=== PATIENT | male | born 2000 | race American Indian/Alaskan Native ===

== ENCOUNTER 2020-12-17 17:07 | Inpatient (IN) | payer MEDICAID ==
--- NOTE | 2020-12-17 18:28 | Event Note ---
ED Screening Note Date of service: 12/17/20 Time: 18:27 ED Screening Note: 20-year-old male patient with history of pulmonary hypertension, acute hypercarbic respiratory failure requiring intubation, COPD, congestive heart failure, polycythemia vera, and obstructive sleep apnea [facility] with complaints of bilateral lower extremity swelling and shortness of breath gradually worsening for approximately 1 week. Patient states that he has been out of his medications for several months. SpO2 81% in triage --> ordered supplemental O2 HR 110 in triage --> ordered EKG, lactic acid, and cultures per sepsis protocol CTA of chest for evaluation of PE ordered due to patient's history of polycythemia + tachycardia + hypoxia + dyspnea; not an appropriate candidate for D-dimer risk stratification due to high pretest probability Blood gas obtained due to chronic respiratory issues and history of hypercarbic respiratory failure less than 1 year ago. General: Awake, appropriately interactive, no acute distress. Neck: Supple. Full range of motion intact. Cardiovascular: Tachycardic. Normal peripheral perfusion. Nonpitting lower extremity edema noted bilaterally. Pulmonary: Clear to auscultation. No respiratory distress. Patient is speaking normally without use of accessory muscles. Skin: No apparent rashes or lesions. Neurological: No facial asymmetry. Speech is clear. Follows commands. Patient is alert and oriented. Musculoskeletal: Moves all four extremities spontaneously with normal range of motion. Psych: Cooperative. Appropriate mood and affect. I have greeted and performed a focused rapid initial assessment of this patient. A comprehensive ED assessment and evaluation of the patient, analysis of all test results, and completion of the medical decision-making process will be conducted by additional ED providers. This initial assessment/diagnostic orders/clinical plan/treatment(s) is/are subject to change based on patients health status, clinical progression and re-assessment. Further treatment and workup at subsequent clinical provider's discretion. Patient/guardian urged not to elope from the ED as their condition may be serious if not clinically assessed and managed.
[2020-12-17 19:17] LABS: Mean Corpuscular HGB Conc 33 % (32-34); Mean Corpuscular Volume 93 fl (84-94); Red Blood Count 6.76 M/mm3 (3.65-5.03); Red Cell Distribution Width 15.2 % (13.2-15.2)
[2020-12-17] MEDS ORDERED: ACETAMINOPHEN 325 MG TAB PO ONE (19:17)
--- NOTE | 2020-12-17 19:17 | Emergency Department Report ---
ED General Adult HPI - General Chief complaint: Dyspnea/Respdistress Stated complaint: BACK PAIN/FEET SWOLLEN PUI?: Yes Time Seen by Provider: 12/17/20 18:44 Source: patient, RN notes reviewed, old records reviewed Mode of arrival: Ambulatory Limitations: No Limitations - History of Present Illness Initial comments: The patient was evaluated in the emergency department for symptoms described in the history of present illness. He/she was evaluated in the context of the global COVID-19 pandemic, which necessitated consideration that the patient might be at risk for infection with the virus that causes COVID-19. Institution al protocols and algorithms that pertain to the evaluation of patients at risk for COVID-19 are in a state of rapid change based on information released by regulatory bodies including the CDC and federal and state organizations. These policies and algorithms were followed during the patient's care in the emergency department. Please note that these policies, procedures and recommendations changed on a rapid basis. During the history and physical examination, I had on complete personal protect nataliia equipment. Patient is a 21-year-old gentleman, with a past history of body mass index 36.8, history of hypoxic and hypercapnic respiratory failure requiring intubation, flash pulmonary edema, obstructive sleep apnea, noncompliant with CPAP, polycythemia. The patient presents to the ER today with a primary complaint of nontraumatic paralumbar back pain. This has been present for a few weeks. The pain does not radiate anywhere. It increases with palpation. It decreases with rest. There is no bladder or bowel retention or incontinence, no saddle anesthesia, no focal extremity weakness/numbness. On review of systems, patient endorses chronic headaches, sleepiness, fatigue, shortness of breath, and lower extremity swelling. He unfortunately does not have a CPAP as he reports that it was stolen. He denies loss of taste and smell. He denies travel, surgery, immobilization, oral contraceptive use. He denies Covid exposure. -: Gradual, days(s), week(s) Location: back, left, right, lower extremity Severity scale (0 -10): 9 Quality: aching Consistency: intermittent Improves with: rest Worsens with: movement - Related Data Previous Rx's Medication Instructions Recorded Last Taken Type Albuterol Mdi (or & Nicu Only) 1 puff IH QID PRN #8.5 gram 10/17/19 Unknown Rx [ProAir HFA Inhaler] Furosemide [Lasix] 20 mg PO QDAY #14 tablet 10/17/19 Unknown Rx Allergies Allergy/AdvReac Type Severity Reaction Status Date / Time No Known Allergies Allergy Unverified 10/09/19 09:58 ED Review of Systems ROS: Stated complaint: BACK PAIN/FEET SWOLLEN Other details as noted in HPI Constitutional: malaise, weakness, other (Denies loss of taste and smell). denies: fever Eyes: denies: eye discharge ENT: congestion Respiratory: cough, orthopnea, shortness of breath, SOB with exertion, SOB at rest. denies: wheezing Cardiovascular: dyspnea on exertion, orthopnea, edema, paroxysmal nocturnal dyspnea. denies: chest pain Gastrointestinal: denies: nausea, vomiting, hematemesis, melena, hematochezia Genitourinary: denies: dysuria Musculoskeletal: back pain, arthralgia, myalgia Neurological: headache, weakness Hematological/Lymphatic: denies: easy bleeding ED Past Medical Hx - Past Medical History Hx Asthma: Yes Additional medical history: Pulmonary hypertension/ SLLEP APNEA - Surgical History Past Surgical History?: No - Social History Smoking Status: Current Every Day Smoker - Medications Home Medications: Home Medications Medication Instructions Recorded Confirmed Last Taken Type Albuterol Mdi (or & Nicu Only) 1 puff IH QID PRN #8.5 gram 10/17/19 Unknown Rx [ProAir HFA Inhaler] Furosemide [Lasix] 20 mg PO QDAY #14 tablet 10/17/19 Unknown Rx ED Physical Exam - General Limitations: No Limitations General appearance: alert, anxious, obese - Head Head exam: Present: atraumatic, normocephalic - Eye Eye exam: Present: normal appearance, EOMI. Absent: nystagmus - ENT ENT exam: Present: normal exam, normal orophraynx, mucous membranes moist, normal external ear exam - Neck Neck exam: Present: normal inspection, full ROM. Absent: tenderness, meningismus - Respiratory Respiratory exam: Present: decreased breath sounds. Absent: respiratory distress, wheezes, rales, rhonchi, stridor - Cardiovascular Cardiovascular Exam: Present: normal rhythm, tachycardia, JVD. Absent: systolic murmur, diastolic murmur, rubs, gallop - GI/Abdominal GI/Abdominal exam: Present: soft. Absent: distended, tenderness, guarding, rebo und, rigid, pulsatile mass - Rectal Rectal exam: Present: deferred - Extremities Exam Extremities exam: Present: normal inspection, full ROM, pedal edema (3+ edema in the bilateral lower extremities), other (2+ pulses noted in the bilateral upper and lower extremities. There is no palpable cord. negative Homans sign. Muscular compartments are soft. The pelvis is stable.). Absent: calf tenderness - Back Exam Back exam: Present: normal inspection, paraspinal tenderness. Absent: tenderness, CVA tenderness (R), CVA tenderness (L), vertebral tenderness - Neurological Exam Neurological exam: Present: alert, normal gait, other (No facial droop. Tongue midline. Extraocular movements intact bilaterally. Facial sensation intact to light touch in V1, V2, V3 distribution bilaterally. 5 and a 5 strength in 4 extremities. Sensation intact to light touch in 4 extremities.). Absent: motor sensory deficit (Downgoing plantar reflexes bilaterally) - Psychiatric Psychiatric exam: Present: anxious - Skin Skin exam: Present: warm, dry, intact, normal color. Absent: rash ED Course Vital Signs 12/17/20 12/17/20 12/17/20 18:22 19:18 19:28 Temperature 99 F Pulse Rate 110 H 92 H Respiratory 22 Rate Blood Pressure Blood Pressure 129/76 [Right] O2 Sat by Pulse 81 L 85 Oximetry 12/17/20 12/17/20 12/17/20 19:30 19:46 20:00 Temperature Pulse Rate 98 H 102 H 114 H Respiratory 12 13 18 Rate Blood Pressure 121/79 121/79 121/79 Blood Pressure [Right] O2 Sat by Pulse 98 89 83 L Oximetry 12/17/20 12/17/20 12/17/20 20:08 20:16 20:30 Temperature Pulse Rate 103 H 106 H 95 H Respiratory 17 15 16 Rate Blood Pressure 139/88 139/88 139/88 Blood Pressure [Right] O2 Sat by Pulse 95 97 96 Oximetry 12/17/20 12/17/20 12/17/20 20:46 21:00 21:16 Temperature Pulse Rate 102 H 103 H 96 H Respiratory 16 15 17 Rate Blood Pressure 139/88 139/88 146/87 Blood Pressure [Right] O2 Sat by Pulse 94 93 93 Oximetry 12/17/20 12/17/20 12/17/20 21:30 21:46 22:00 Temperature Pulse Rate 103 H 104 H 102 H Respiratory 14 15 15 Rate Blood Pressure 146/87 146/87 146/87 Blood Pressure [Right] O2 Sat by Pulse 93 92 93 Oximetry 12/17/20 12/17/20 12/17/20 22:16 22:30 22:46 Temperature Pulse Rate 100 H 102 H Respiratory 14 16 Rate Blood Pressure 138/81 138/81 138/81 Blood Pressure [Right] O2 Sat by Pulse 93 94 96 Oximetry 12/17/20 12/17/20 12/17/20 23:00 23:16 23:30 Temperature Pulse Rate 99 H 102 H 104 H Respiratory 15 15 16 Rate Blood Pressure 138/81 148/98 148/98 Blood Pressure [Right] O2 Sat by Pulse 94 95 96 Oximetry 12/17/20 12/18/20 12/18/20 23:46 00:00 00:16 Temperature Pulse Rate 97 H 101 H 93 H Respiratory 17 14 16 Rate Blood Pressure 148/98 148/98 135/92 Blood Pressure [Right] O2 Sat by Pulse 94 95 96 Oximetry 12/18/20 12/18/20 12/18/20 00:30 00:46 01:00 Temperature Pulse Rate 97 H 96 H 101 H Respiratory 14 17 17 Rate Blood Pressure 135/92 135/92 135/92 Blood Pressure [Right] O2 Sat by Pulse 95 94 95 Oximetry - Reevaluation(s) Reevaluation #1: 12/17/20 20:28 Differential diagnosis, including but not limited to: Obstructive sleep apnea, pulmonary hypertension, obesity hypoventilation syndrome, pneumonia, congestive heart failure, COVID-19, obesity, mechanical back pain Assessment and plan: 21-year-old gentleman with tachycardia, hypoxia, mechanical back pain, lower extremity swelling, likely experiencing natural history and complications of morbid obesity, and noncompliance with CPAP, manifest by acute hypoxic respiratory failure, tachycardia, congestive heart failure, and lower extremity edema. This patient meets criteria for admission and hospitalization. We will place him on isolation precautions, start BiPAP, obtain ABG, give steroids empirically, and high-dose Lasix. Do not suspect pulmonary embolism based off of the history Biomarkers were sent to risk stratify for Covid symptomatology. Patient is amenable to admission and hospitalization. He required 5 L of supplemental oxygen to improve his O2 saturation. I am awaiting arterial blood gas at this time. Will discuss with hospital medicine. His EKG, tachycardia and hypoxia are reviewed and appreciated, but the patient denies DVT and pulmonary embolism risk factors. It is most likely that his physical exam findings EKG findings, and vital signs are likely secondary to decompensated obstructive sleep apnea, pulmonary hypertension, right-sided heart failure, and noncompliance with CPAP. Polycythemia is likely secondary to compensatory mechanisms 12/17/20 20:30 12/17/20 20:31 Reevaluation #2: 12/17/20 20:32 Patient walks with a steady gait. He has no bladder or bowel retention or incontinence, and no saddle anesthesia. Back pain is likely mechanical, likely secondary to obesity, his examination and history at this time do not suggest epidural compression syndrome. Neurologic exam benign within normal limits at this time. 12/17/20 21:18 Patient breathing comfortably on BiPAP. Arterial blood gas demonstrates respiratory acidosis, hypercarbia, and hypoxemic respiratory failure. Patient awake and protecting airway at this time. He will be admitted to our stepdown unit. Hospital physician, Dr. Yanez to admit to [facility] ED Medical Decision Making - Lab Data Result diagrams: 12/17/20 18:44 12/17/20 19:21 Vital Signs 12/17/20 12/17/20 12/17/20 18:22 19:28 20:08 Temperature 99 F Pulse Rate 110 H 92 H 103 H Respiratory 22 17 Rate Blood Pressure 139/88 Blood Pressure 129/76 [Right] O2 Sat by Pulse 81 L 95 Oximetry Lab Results 12/17/20 12/17/20 12/17/20 Range/Units 18:44 18:44 18:44 WBC 6.8 (4.5-11.0) K/mm3 RBC 6.76 H (3.65-5.03) M/mm3 Hgb 20.4 H* (11.8-15.2) gm/dl Hct 62.7 H* (35.5-45.6) % MCV 93 (84-94) fl MCH 30 (28-32) pg MCHC 33 (32-34) % RDW 15.2 (13.2-15.2) % Plt Count 140 (140-440) K/mm3 [place] % (Auto) Clinical Assessment Manager Add Manual Diff Complete Total Counted 100 Seg Neuts % (Manual) 58.0 (40.0-70.0) % Lymphocytes % (Manual) 28.0 (13.4-35.0) % Monocytes % (Manual) 12.0 H (0.0-7.3) % Eosinophils % (Manual) 2.0 (0.0-4.3) % Promyelocytes % 0 % Nucleated RBC % Not Reportable Seg Neutrophils # Man 3.9 (1.8-7.7) K/mm3 Band Neutrophils # 0.0 K/mm3 Lymphocytes # (Manual) 1.9 (1.2-5.4) K/mm3 Abs React Lymphs (Man) 0.0 K/mm3 Monocytes # (Manual) 0.8 (0.0-0.8) K/mm3 Eosinophils # (Manual) 0.1 (0.0-0.4) K/mm3 Basophils # (Manual) 0.0 (0.0-0.1) K/mm3 Metamyelocytes # 0.0 K/mm3 Myelocytes # 0.0 K/mm3 Promyelocytes # 0.0 K/mm3 Blast Cells # 0.0 K/mm3 WBC Morphology Not Reportable Hypersegmented Neuts Not Reportable Hyposegmented Neuts Not Reportable Hypogranular Neuts Not Reportable Smudge Cells Not Reportable Toxic Granulation Not Reportable Toxic Vacuolation Not Reportable Dohle Bodies Not Reportable Pelger-Huet Anomaly Not Reportable Jono Rods Not Reportable Platelet Estimate Consistent w auto Clumped Platelets Not Reportable Plt Clumps, EDTA Not Reportable Large Platelets Not Reportable Giant Platelets Not Reportable Platelet Satelliting Not Reportable Plt Morphology Comment Not Reportable RBC Morphology Normal Dimorphic RBCs Not Reportable Polychromasia Not Reportable Hypochromasia Not Reportable Poikilocytosis Not Reportable Anisocytosis Not Reportable Microcytosis Not Reportable Macrocytosis Not Reportable Spherocytes Not Reportable Pappenheimer Bodies Not Reportable Sickle Cells Not Reportable Target Cells Not Reportable Tear Drop Cells Not Reportable Ovalocytes Not Reportable Helmet Cells Not Reportable Mejia-Hopkins Bodies Not Reportable Douglas Rings Not Reportable Zullinger Cells Not Reportable Bite Cells Not Reportable Crenated Cell Not Reportable Elliptocytes Not Reportable Acanthocytes (Spur) Not Reportable Rouleaux Not Reportable Hemoglobin C Crystals Not Reportable Schistocytes Not Reportable Malaria parasites Not Reportable Rashard Bodies Not Reportable Hem Pathologist Commnt No PT (12.2-14.9) Sec. INR (0.87-1.13) APTT (24.2-36.6) Sec. D-Dimer (0-234) ng/mlDDU Sodium 134 L (137-145) mmol/L Potassium 4.4 (3.6-5.0) mmol/L Chloride 97.0 L (98-107) mmol/L Carbon Dioxide 26 (22-30) mmol/L Anion Gap 15 mmol/L BUN 10 (9-20) mg/dL Creatinine 0.8 (0.8-1.3) mg/dL Estimated GFR > 60 ml/min BUN/Creatinine Ratio 13 % Glucose 105 H (75-100) mg/dL Lactic Acid 1.10 (0.7-2.0) mmol/L Calcium 9.0 (8.4-10.2) mg/dL Magnesium 1.90 (1.7-2.3) mg/dL Ferritin (30.0-300.0) ng/mL Total Bilirubin 0.40 (0.1-1.2) mg/dL AST 27 (5-40) units/L ALT 21 (7-56) units/L Alkaline Phosphatase 66 (35-129) units/L Lactate Dehydrogenase (91-180) units/L Total Creatine Kinase (55-170) units/L Troponin T < 0.010 (0.00-0.029) ng/mL C-Reactive Protein (0.00-1.30) mg/dL NT-Pro-B Natriuret Pep 1354 H (0-450) pg/mL Total Protein 6.6 (6.3-8.2) g/dL Albumin 3.6 L (3.9-5) g/dL Albumin/Globulin Ratio 1.2 % 12/17/20 12/17/20 12/17/20 Range/Units 18:44 19:21 19:21 WBC (4.5-11.0) K/mm3 RBC (3.65-5.03) M/mm3 Hgb (11.8-15.2) gm/dl Hct (35.5-45.6) % MCV (84-94) fl MCH (28-32) pg MCHC (32-34) % RDW (13.2-15.2) % Plt Count (140-440) K/mm3 L[place]kin % (Auto) Add Manual Diff Total Counted Seg Neuts % (Manual) (40.0-70.0) % Lymphocytes % (Manual) (13.4-35.0) % Monocytes % (Manual) (0.0-7.3) % Eosinophils % (Manual) (0.0-4.3) % Promyelocytes % % Nucleated RBC % Seg Neutrophils # Man (1.8-7.7) K/mm3 Band Neutrophils # K/mm3 Lymphocytes # (Manual) (1.2-5.4) K/mm3 Abs React Lymphs (Man) K/mm3 Monocytes # (Manual) (0.0-0.8) K/mm3 Eosinophils # (Manual) (0.0-0.4) K/mm3 Basophils # (Manual) (0.0-0.1) K/mm3 Metamyelocytes # K/mm3 Myelocytes # K/mm3 Promyelocytes # K/mm3 Blast Cells # K/mm3 WBC Morphology Hypersegmented Neuts Hyposegmented Neuts Hypogranular Neuts Smudge Cells Toxic Granulation Toxic Vacuolation Dohle Bodies Pelger-Huet Anomaly Jono Rods Platelet Estimate Clumped Platelets Plt Clumps, EDTA Large Platelets Giant Platelets Platelet Satelliting Plt Morphology Comment RBC Morphology Dimorphic RBCs Polychromasia Hypochromasia Poikilocytosis Anisocytosis Microcytosis Macrocytosis Spherocytes Pappenheimer Bodies Sickle Cells Target Cells Tear Drop Cells Ovalocytes Helmet Cells Mejia-Hopkins Bodies Douglas Rings Zullinger Cells Bite Cells Crenated Cell Elliptocytes Acanthocytes (Spur) Rouleaux Hemoglobin C Crystals Schistocytes Malaria parasites Rashard Bodies Hem Pathologist Commnt PT 13.7 (12.2-14.9) Sec. INR 1.07 (0.87-1.13) APTT 26.8 (24.2-36.6) Sec. D-Dimer 260.5 H (0-234) ng/mlDDU Sodium (137-145) mmol/L Potassium (3.6-5.0) mmol/L Chloride (98-107) mmol/L Carbon Dioxide (22-30) mmol/L Anion Gap mmol/L BUN (9-20) mg/dL Creatinine (0.8-1.3) mg/dL Estimated GFR ml/min BUN/Creatinine Ratio % Glucose 98 (75-100) mg/dL Lactic Acid (0.7-2.0) mmol/L Calcium (8.4-10.2) mg/dL Magnesium (1.7-2.3) mg/dL Ferritin (30.0-300.0) ng/mL Total Bilirubin (0.1-1.2) mg/dL AST (5-40) units/L ALT (7-56) units/L Alkaline Phosphatase (35-129) units/L Lactate Dehydrogenase 708 H (91-180) units/L Total Creatine Kinase 781 H (55-170) units/L Troponin T (0.00-0.029) ng/mL C-Reactive Protein 0.40 (0.00-1.30) mg/dL NT-Pro-B Natriuret Pep (0-450) pg/mL Total Protein (6.3-8.2) g/dL Albumin (3.9-5) g/dL Albumin/Globulin Ratio % 12/17/20 Range/Units 19:21 WBC (4.5-11.0) K/mm3 RBC (3.65-5.03) M/mm3 Hgb (11.8-15.2) gm/dl Hct (35.5-45.6) % MCV (84-94) fl MCH (28-32) pg MCHC (32-34) % RDW (13.2-15.2) % Plt Count (140-440) K/mm3 [place] % (Auto) Add Manual Diff Total Counted Seg Neuts % (Manual) (40.0-70.0) % Lymphocytes % (Manual) (13.4-35.0) % Monocytes % (Manual) (0.0-7.3) % Eosinophils % (Manual) (0.0-4.3) % Promyelocytes % % Nucleated RBC % Seg Neutrophils # Man (1.8-7.7) K/mm3 Band Neutrophils # K/mm3 Lymphocytes # (Manual) (1.2-5.4) K/mm3 Abs React Lymphs (Man) K/mm3 Monocytes # (Manual) (0.0-0.8) K/mm3 Eosinophils # (Manual) (0.0-0.4) K/mm3 Basophils # (Manual) (0.0-0.1) K/mm3 Metamyelocytes # K/mm3 Myelocytes # K/mm3 Promyelocytes # K/mm3 Blast Cells # K/mm3 WBC Morphology Hypersegmented Neuts Hyposegmented Neuts Hypogranular Neuts Smudge Cells Toxic Granulation Toxic Vacuolation Dohle Bodies Pelger-Huet Anomaly Jono Rods Platelet Estimate Clumped Platelets Plt Clumps, EDTA Large Platelets Giant Platelets Platelet Satelliting Plt Morphology Comment RBC Morphology Dimorphic RBCs Polychromasia Hypochromasia Poikilocytosis Anisocytosis Microcytosis Macrocytosis Spherocytes Pappenheimer Bodies Sickle Cells Target Cells Tear Drop Cells Ovalocytes Helmet Cells Mejia-Hopkins Bodies Douglas Rings Zullinger Cells Bite Cells Crenated Cell Elliptocytes Acanthocytes (Spur) Rouleaux Hemoglobin C Crystals Schistocytes Malaria parasites Rashard Bodies Hem Pathologist Commnt PT (12.2-14.9) Sec. INR (0.87-1.13) APTT (24.2-36.6) Sec. D-Dimer (0-234) ng/mlDDU Sodium (137-145) mmol/L Potassium (3.6-5.0) mmol/L Chloride (98-107) mmol/L Carbon Dioxide (22-30) mmol/L Anion Gap mmol/L BUN (9-20) mg/dL Creatinine (0.8-1.3) mg/dL Estimated GFR ml/min BUN/Creatinine Ratio % Glucose (75-100) mg/dL Lactic Acid (0.7-2.0) mmol/L Calcium (8.4-10.2) mg/dL Magnesium (1.7-2.3) mg/dL Ferritin 202.3 (30.0-300.0) ng/mL Total Bilirubin (0.1-1.2) mg/dL AST (5-40) units/L ALT (7-56) units/L Alkaline Phosphatase (35-129) units/L Lactate Dehydrogenase (91-180) units/L Total Creatine Kinase (55-170) units/L Troponin T (0.00-0.029) ng/mL C-Reactive Protein (0.00-1.30) mg/dL NT-Pro-B Natriuret Pep (0-450) pg/mL Total Protein (6.3-8.2) g/dL Albumin (3.9-5) g/dL Albumin/Globulin Ratio % - EKG Data 12/17/20 20:28 EKG today's interpreted at 18: 34 Sinus rhythm, tachycardia. Rightward axis deviation. T wave inversions V2. QTc 439 ms. Abnormal EKG. Not a STEMI. No prior available for comparison. - Radiology Data Radiology results: pending, report reviewed, image reviewed [facility] [address] [place] [address] XRay Report Signed Patient: TONNY VALENTIN JR MR#: [id number] : 2000 Acct:[id number] Age/Sex: 20 / M ADM Date: 12/17/20 Loc: ED Attending Dr: Ordering Physician: SARA AMOS Date of Service: Procedure(s): XR chest routine 2V Accession Number(s): [id number] cc: SARA AMOS Fluoro Time In Minutes: CHEST 2 VIEWS INDICATION / CLINICAL INFORMATION: SOB. COMPARISON: None available. FINDINGS: SUPPORT DEVICES: None. HEART / MEDIASTINUM: Heart is enlarged LUNGS / PLEURA: Mild increased pulmonary vascularity No pneumothorax. ADDITIONAL FINDINGS: No significant additional findings. IMPRESSION: Cardiomegaly with mild increased pulmonary vascularity Signer Name: Yovanny Butcher MD Signed: 12/17/2020 7:13 PM Workstation Name: [id number] Transcribed By: CW Dictated By: SAMM BUTCHER MD Electronically Authenticated By: SAMM BUTCHER MD Signed Date/Time: 12/17/201912 DD/ 12 Critical Care Time: Yes Critical care time in (mins) excluding proc time.: 35 Critical care attestation.: If time is entered above; I have spent that time in minutes in the direct care of this critically ill patient, excluding procedure time. ED Disposition Clinical Impression: Acute respiratory failure with hypoxia, Suspected 2019- infection, Morbid obesity, Obstructive sleep apnea, Noncompliance, Lower back pain, Pulmonary hypertension, Polycythemia, Hypercarbia, Respiratory acidosis Disposition: 09 OP ADMIT IP TO THIS HOSP Is pt being admited?: Yes Does the pt Need Aspirin: No Condition: Serious
[2020-12-17 19:21] LABS: Hematocrit 62.7 % (35.5-45.6); Hemoglobin 20.4 gm/dl (11.8-15.2); Platelet Count 140 K/mm3 (140-440)
[2020-12-17 19:28] LABS: INR 1.07 (0.87-1.13)
[2020-12-17 19:29] LABS: Partial Thromboplastin Time 26.8 Sec. (24.2-36.6)
[2020-12-17 19:35] LABS: Alanine Aminotransferase 21 units/L (7-56); Albumin 3.6 g/dL (3.9-5); BUN/Creatinine Ratio 13; Blood Urea Nitrogen 10 mg/dL (9-20); Hemolysis Index 46
[2020-12-17 19:57] LABS: Total Cells Counted 100
[2020-12-17 19:59] LABS: Platelet Estimate Consistent w Auto; RBC Morphology Normal
[2020-12-17 20:09] LABS: C-Reactive Protein 0.4 mg/dL (0.00-1.30)
[2020-12-17] MEDS ORDERED: dexAMETHasone 4 MG/ML VIAL IV ONE (20:21)
[2020-12-17] MEDS ORDERED: FUROSEMIDE 40 MG/4 ML INJ IV ONE (20:21)
[2020-12-17 20:48] LABS: ABG Base Excess 0.7 mmol/L (-2.0-3.0); ABG Methemoglobin 0.5 % (0.0-1.5); ABG Oxygen Saturation 88.6 % (95.0-99.0); ABG PCO2 78.3 mm Hg; ABG PH 7.229 pH Units (7.350-7.450); ABG PO2 62.9 mm Hg (80.0-90.0)
[2020-12-17] MEDS ORDERED: ALBUTEROL 8.5 GM MDI INHALATION IH PRN (21:50)
[2020-12-17] MEDS ORDERED: hydrALAZINE 20 MG/1 ML INJ IV PRN ×2 (21:52→22:04)
[2020-12-17] MEDS ORDERED: ALBUTEROL 2.5 MG/3 ML NEBU IH PRN (21:55)
--- NOTE | 2020-12-17 21:57 | History and Physical Report ---
History of Present Illness Date of examination: 12/17/20 Date of admission: 12/17/20 Chief complaint: Dyspnea Respiratory distress History of present illness: 21-year-old gentleman, with past medical history of hypoxic and hypercapnic respiratory failure requiring intubation, flash pulmonary edema, obstructive sleep apnea, noncompliant with CPAP, polycythemia and obesity was brought to the emergency room because of shortness of breath and nontraumatic paralumbar back pain. This has been present for a few weeks. The pain does not radiate anywhere. It increases with palpation. It decreases with rest. There is no bladder or bowel retention or incontinence, no saddle anesthesia, no focal extremity weakness/numbness. Patient also complaining of chronic headaches, sleepiness, fatigue, shortness of breath, and lower extremity swelling. In the ER patient is found to have acute hypoxic respiratory failure. ABG showed pH is 7.229 PCO2 78.3 PO2 62.9 bicarb 32.0 also patient has mild CHF Past History Past Medical History: COPD, other (Hypoxic and hypercapnic respiratory failure obesity pulmonary edema) Medications and Allergies Allergies Allergy/AdvReac Type Severity Reaction Status Date / Time No Known Allergies Allergy Unverified 10/09/19 09:58 Home Medications Medication Instructions Recorded Confirmed Last Taken Type Albuterol Mdi (or & Nicu Only) 1 puff IH QID PRN #8.5 gram 10/17/19 Unknown Rx [ProAir HFA Inhaler] Furosemide [Lasix] 20 mg PO QDAY #14 tablet 10/17/19 Unknown Rx Review of Systems Constitutional: lethargy Cardiovascular: orthopnea Respiratory: shortness of breath, dyspnea on exertion, congestion, sleep apnea Exam - Constitutional Vitals: Temp Pulse Resp BP Pulse Ox 99 F 103 H 17 139/88 95 12/17/20 18:22 12/17/20 20:08 12/17/20 20:08 12/17/20 20:08 12/17/20 20:08 General appearance: Present: severe distress, well-nourished, obese - EENT Eyes: Present: PERRL ENT: hearing intact, clear oral mucosa - Neck Neck: Present: supple, normal ROM - Respiratory Respiratory effort: labored Respiratory: bilateral: wheezing - Cardiovascular Heart Sounds: Present: S1 & S2. Absent: rub, click - Extremities Extremities: pulses symmetrical, No edema Peripheral Pulses: within normal limits - Abdominal General gastrointestinal: Present: soft, non-tender, non-distended, normal bowel sounds Male genitourinary: Present: normal - Integumentary Integumentary: Present: clear, warm, dry - Musculoskeletal Musculoskeletal: gait normal, strength equal bilaterally - Psychiatric Psychiatric: appropriate mood/affect, intact judgment & insight - Neurologic Neurologic: CNII-XII intact, moves all extremities HEART Score - HEART Score Troponin: Troponin T < 0.010 ng/mL (0.00-0.029) 12/17/20 18:44 Results - Labs CBC & Chem 7: 12/17/20 18:44 12/17/20 19:21 Labs: Laboratory Last Values WBC 6.8 K/mm3 (4.5-11.0) 12/17/20 18:44 RBC 6.76 M/mm3 (3.65-5.03) H 12/17/20 18:44 Hgb 20.4 gm/dl (11.8-15.2) H* 12/17/20 18:44 Hct 62.7 % (35.5-45.6) H* 12/17/20 18:44 MCV 93 fl (84-94) 12/17/20 18:44 MCH 30 pg (28-32) 12/17/20 18:44 MCHC 33 % (32-34) 12/17/20 18:44 RDW 15.2 % (13.2-15.2) 12/17/20 18:44 Plt Count 140 K/mm3 (140-440) 12/17/20 18:44 [place] % (Auto) Agriculture Instructor 12/17/20 18:44 Add Manual Diff Complete 12/17/20 18:44 Total Counted 100 12/17/20 18:44 Seg Neuts % (Manual) 58.0 % (40.0-70.0) 12/17/20 18:44 Lymphocytes % (Manual) 28.0 % (13.4-35.0) 12/17/20 18:44 Monocytes % (Manual) 12.0 % (0.0-7.3) H 12/17/20 18:44 Eosinophils % (Manual) 2.0 % (0.0-4.3) 12/17/20 18:44 Promyelocytes % 0 % 12/17/20 18:44 Nucleated RBC % Not Reportable 12/17/20 18:44 Seg Neutrophils # Man 3.9 K/mm3 (1.8-7.7) 12/17/20 18:44 Band Neutrophils # 0.0 K/mm3 12/17/20 18:44 Lymphocytes # (Manual) 1.9 K/mm3 (1.2-5.4) 12/17/20 18:44 Abs React Lymphs (Man) 0.0 K/mm3 12/17/20 18:44 Monocytes # (Manual) 0.8 K/mm3 (0.0-0.8) 12/17/20 18:44 Eosinophils # (Manual) 0.1 K/mm3 (0.0-0.4) 12/17/20 18:44 Basophils # (Manual) 0.0 K/mm3 (0.0-0.1) 12/17/20 18:44 Metamyelocytes # 0.0 K/mm3 12/17/20 18:44 Myelocytes # 0.0 K/mm3 12/17/20 18:44 Promyelocytes # 0.0 K/mm3 12/17/20 18:44 Blast Cells # 0.0 K/mm3 12/17/20 18:44 WBC Morphology Not Reportable 12/17/20 18:44 Hypersegmented Neuts Not Reportable 12/17/20 18:44 Hyposegmented Neuts Not Reportable 12/17/20 18:44 Hypogranular Neuts Not Reportable 12/17/20 18:44 Smudge Cells Not Reportable 12/17/20 18:44 Toxic Granulation Not Reportable 12/17/20 18:44 Toxic Vacuolation Not Reportable 12/17/20 18:44 Dohle Bodies Not Reportable 12/17/20 18:44 Pelger-Huet Anomaly Not Reportable 12/17/20 18:44 Jono Rods Not Reportable 12/17/20 18:44 Platelet Estimate Consistent w auto 12/17/20 18:44 Clumped Platelets Not Reportable 12/17/20 18:44 Plt Clumps, EDTA Not Reportable 12/17/20 18:44 Large Platelets Not Reportable 12/17/20 18:44 Giant Platelets Not Reportable 12/17/20 18:44 Platelet Satelliting Not Reportable 12/17/20 18:44 Plt Morphology Comment Not Reportable 12/17/20 18:44 RBC Morphology Normal 12/17/20 18:44 Dimorphic RBCs Not Reportable 12/17/20 18:44 Polychromasia Not Reportable 12/17/20 18:44 Hypochromasia Not Reportable 12/17/20 18:44 Poikilocytosis Not Reportable 12/17/20 18:44 Anisocytosis Not Reportable 12/17/20 18:44 Microcytosis Not Reportable 12/17/20 18:44 Macrocytosis Not Reportable 12/17/20 18:44 Spherocytes Not Reportable 12/17/20 18:44 Pappenheimer Bodies Not Reportable 12/17/20 18:44 Sickle Cells Not Reportable 12/17/20 18:44 Target Cells Not Reportable 12/17/20 18:44 Tear Drop Cells Not Reportable 12/17/20 18:44 Ovalocytes Not Reportable 12/17/20 18:44 Helmet Cells Not Reportable 12/17/20 18:44 [place] Bodies Not Reportable 12/17/20 18:44 [place] Rings Not Reportable 12/17/20 18:44 [place] Cells Not Reportable 12/17/20 18:44 Bite Cells Not Reportable 12/17/20 18:44 Crenated Cell Not Reportable 12/17/20 18:44 Elliptocytes Not Reportable 12/17/20 18:44 Acanthocytes (Spur) Not Reportable 12/17/20 18:44 Rouleaux Not Reportable 12/17/20 18:44 Hemoglobin C Crystals Not Reportable 12/17/20 18:44 Schistocytes Not Reportable 12/17/20 18:44 Malaria parasites Not Reportable 12/17/20 18:44 Rashard Bodies Not Reportable 12/17/20 18:44 Hem Pathologist Commnt No 12/17/20 18:44 PT 13.7 Sec. (12.2-14.9) 12/17/20 18:44 INR 1.07 (0.87-1.13) 12/17/20 18:44 APTT 26.8 Sec. (24.2-36.6) 12/17/20 18:44 D-Dimer 260.5 ng/mlDDU (0-234) H 12/17/20 19:21 ABG pH 7.229 pH Units (7.350-7.450) L 12/17/20 20:00 ABG pCO2 78.3 mm Hg 12/17/20 20:00 ABG pO2 62.9 mm Hg (80.0-90.0) L 12/17/20 20:00 ABG HCO3 32.0 mmol/L (20.0-26.0) H 12/17/20 20:00 ABG O2 Saturation 88.6 % (95.0-99.0) L 12/17/20 20:00 ABG O2 Content 23.8 (0.0-44) 12/17/20 20:00 ABG Base Excess 0.7 mmol/L (-2.0-3.0) 12/17/20 20:00 ABG Hemoglobin 20.1 gm/dl (14.0-18.0) H 12/17/20 20:00 ABG Carboxyhemoglobin 4.0 % (0.0-5.0) 12/17/20 20:00 ABG Methemoglobin 0.5 % (0.0-1.5) 12/17/20 20:00 Oxyhemoglobin 84.6 % (95.0-99.0) L 12/17/20 20:00 FiO2 36 % 12/17/20 20:00 Sodium 134 mmol/L (137-145) L 12/17/20 18:44 Potassium 4.4 mmol/L (3.6-5.0) 12/17/20 18:44 Chloride 97.0 mmol/L (98-107) L 12/17/20 18:44 Carbon Dioxide 26 mmol/L (22-30) 12/17/20 18:44 Anion Gap 15 mmol/L 12/17/20 18:44 BUN 10 mg/dL (9-20) 12/17/20 18:44 Creatinine 0.8 mg/dL (0.8-1.3) 12/17/20 18:44 Estimated GFR > 60 ml/min 12/17/20 18:44 BUN/Creatinine Ratio 13 % 12/17/20 18:44 Glucose 98 mg/dL (75-100) 12/17/20 19:21 Lactic Acid 1.10 mmol/L (0.7-2.0) 12/17/20 18:44 Calcium 9.0 mg/dL (8.4-10.2) 12/17/20 18:44 Magnesium 1.90 mg/dL (1.7-2.3) 12/17/20 18:44 Ferritin 202.3 ng/mL (30.0-300.0) 12/17/20 19:21 Total Bilirubin 0.40 mg/dL (0.1-1.2) 12/17/20 18:44 AST 27 units/L (5-40) 12/17/20 18:44 ALT 21 units/L (7-56) 12/17/20 18:44 Alkaline Phosphatase 66 units/L (35-129) 12/17/20 18:44 Lactate Dehydrogenase 708 units/L (91-180) H 12/17/20 19:21 Total Creatine Kinase 781 units/L (55-170) H 12/17/20 19:21 Troponin T < 0.010 ng/mL (0.00-0.029) 12/17/20 18:44 C-Reactive Protein 0.40 mg/dL (0.00-1.30) 12/17/20 19:21 NT-Pro-B Natriuret Pep 1354 pg/mL (0-450) H 12/17/20 18:44 Total Protein 6.6 g/dL (6.3-8.2) 12/17/20 18:44 Albumin 3.6 g/dL (3.9-5) L 12/17/20 18:44 Albumin/Globulin Ratio 1.2 % 12/17/20 18:44 Microbiology: Microbiology 12/17/20 18:44 Peripheral/Venous Blood Culture - Preliminary Culture in Progress 12/17/20 18:54 Peripheral/Venous Blood Culture - Preliminary Culture in Progress - Imaging and Cardiology Chest x-ray: image reviewed Assessment and Plan VTE prophylaxis?: Chemical Plan of care discussed with patient/family: Yes - Patient Problems (1) Acute respiratory failure with hypoxia Current Visit: Yes Status: Acute Plan to address problem: Admit the patient to the stepdown. Put the patient on BiPAP. DuoNeb by nebulizer every 4 hours as needed. Solu-Medrol 40 mg IV every 6 hours as needed. Zithromax to 50 mg p.o. daily singular 10 mg p.o. daily. Blood cultures sputum culture. Consult pulmonary for further evaluation and treatment. Recheck CBC BMP in the morning (2) Hypercarbia Current Visit: Yes Status: Acute Plan to address problem: Put the patient on BiPAP. DuoNeb by nebulizer every 4 hours as needed. Solu- Medrol 40 mg IV every 6 hours as needed. Zithromax to 50 mg p.o. daily singular 10 mg p.o. daily. Blood cultures sputum culture. Consult pulmonary for further evaluation and treatment. Recheck CBC BMP in the morning (3) Lower back pain Current Visit: Yes Status: Acute Plan to address problem: Tylenol 650 mg p.o. every 6 hours as needed. We will try to avoid narcotic. (4) Morbid obesity Current Visit: Yes Status: Acute Plan to address problem: Patient counseled regarding weight loss. We refer to the outpatient bariatric surgery if needed (5) Obstructive sleep apnea Current Visit: Yes Status: Acute Plan to address problem: Patient encouraged to compliant with the CPAP and take them neb treatment and other medication regularly (6) Suspected 2019-nCoV infection Current Visit: Yes Status: Acute Plan to address problem: We will put the patient on Zithromax to 50 mg p.o. daily. Due to the blood cultures sputum culture. Please follow the Covid test. (7) DVT prophylaxis Current Visit: Yes Status: Acute Plan to address problem: Patient is on heparin 5000 units subcu every 8 hours for DVT prophylaxis and Protonix 40 mg p.o. daily for GI prophylaxis. Patient is a full code
[2020-12-17] MEDS: HEPARIN 5,000 UNIT/1 ML VIAL SUB-Q SCH (23:39)
[2020-12-17] MEDS: MONTELUKAST 10 MG TAB PO SCH (23:40)
[2020-12-17] MEDS: methylPREDNISolone Sod Succinate 40 MG/1 ML INJ IV SCH (23:47)
[2020-12-18] MEDS: IPRATROPIUM/ALBUTEROL SULFATE 3 ML AMPUL.NEB IH SCH ×4 (05:25→20:17)
[2020-12-18] MEDS: methylPREDNISolone Sod Succinate 40 MG/1 ML INJ IV SCH ×3 (05:56→17:38)
[2020-12-18] MEDS ORDERED: HEPARIN 5,000 UNIT/1 ML VIAL SUB-Q SCH (06:00)
[2020-12-18] MEDS ORDERED: PANTOPRAZOLE 40 MG TAB PO SCH (07:30)
[2020-12-18] MEDS: HEPARIN 5,000 UNIT/1 ML VIAL SUB-Q SCH ×3 (09:19→21:28)
[2020-12-18] MEDS: AZITHROMYCIN 250 MG TAB PO SCH (09:55)
[2020-12-18] MEDS: FUROSEMIDE 20 MG TAB PO SCH (09:55)
[2020-12-18] MEDS ORDERED: AZITHROMYCIN 250 MG TAB PO SCH (10:00)
--- NOTE | 2020-12-18 11:31 | Electrocardiograph Report ---
[facility] Test Date: 2020-12-17 Test Time: 18:34:40 Pat Name: TONNY VALENTIN Department: Room: A257 1 Gender: M Fitness/Wellness Director: CORRINE : 2000 Requested By: HAMZAH OROZCO Order Number: [id number] Reading MD: John Elkins Measurements Intervals [place] Rate: 110 P: 61 [place]: 145 QRS: 180 QRSD: 64 T: 11 QT: 324 QTc: 439 Interpretive Statements Sinus tachycardia Right axis deviation lpfb No previous ECG available for comparison Electronically Signed On 12-18-2020 11:30:49 EDT by John Elkins
--- NOTE | 2020-12-18 12:24 | Progress Note ---
Assessment and Plan Assessment and plan: (1) Acute respiratory failure with hypoxia Current Visit: Yes Status: Acute Plan to address problem: Admit the patient to the stepdown. Put the patient on BiPAP. DuoNeb by nebulizer every 4 hours as needed. Solu-Medrol 40 mg IV every 6 hours as needed. Zithromax to 50 mg p.o. daily singular 10 mg p.o. daily. Blood cultures sputum culture. Consult pulmonary for further evaluation and treatment. Recheck CBC BMP in the morning (2) Hypercarbia Current Visit: Yes Status: Acute Plan to address problem: Put the patient on BiPAP. DuoNeb by nebulizer every 4 hours as needed. Solu- Medrol 40 mg IV every 6 hours as needed. Zithromax to 50 mg p.o. daily singular 10 mg p.o. daily. Blood cultures sputum culture. Consult pulmonary for further evaluation and treatment. Recheck CBC BMP in the morning (3) Lower back pain Current Visit: Yes Status: Acute Plan to address problem: Tylenol 650 mg p.o. every 6 hours as needed. We will try to avoid narcotic. (4) Morbid obesity Current Visit: Yes Status: Acute Plan to address problem: Patient counseled regarding weight loss. We refer to the outpatient bariatric surgery if needed (5) Obstructive sleep apnea Current Visit: Yes Status: Acute Plan to address problem: Patient encouraged to compliant with the CPAP and take them neb treatment and other medication regularly (6) Suspected 2019-nCoV infection Current Visit: Yes Status: Acute Plan to address problem: We will put the patient on Zithromax to 50 mg p.o. daily. Due to the blood cultures sputum culture. Please follow the Covid test. (7) DVT prophylaxis Current Visit: Yes Status: Acute Plan to address problem: Patient is on heparin 5000 units subcu every 8 hours for DVT prophylaxis and Protonix 40 mg p.o. daily for GI prophylaxis. Patient is a full code 12/18/2020 -Patient was seen and evaluated this morning. He is on treatment for asthma/COPD exacerbation. He is on IV antibiotic, nebulizer treatment and [place] cadron. Patient is currently on BiPAP. He has polycythemia likely due to hypoxia, will repeat CBC. Patient was noncompliant with his CPAP treatment at home. Patient suspected for Covid and Covid test ordered. Will credit support counselor about weight loss once he is getting better. Obstructive sleep apnea on BiPAP for now. Pulmonary consulted. History Interval history: Patient was seen and evaluated this morning Patient is on BiPAP Does not have any complaints Hospitalist Physical - Physical exam Narrative exam: Patient is on BiPAP. The patient is morbidly obese. Vital signs as documented. Head exam is unremarkable. No scleral icterus . Neck is without jugular venous distension, thyromegaly, or carotid bruits. Lungs are clear to auscultation. Cardiac exam reveals regular rate and Rhythm. Abdominal exam reveals normal bowel sounds, nontender, no organomegaly. Extremities are nonedematous and both femoral and pedal pulses are normal. CRULLER MAKER: Alert and oriented 3. No focal weakness. - Constitutional Vitals: Temp Pulse Resp BP Pulse Ox 98.4 F 97 H 17 133/86 92 12/18/20 12:00 12/18/20 10:00 12/18/20 10:00 12/18/20 10:00 12/18/20 10:11 General appearance: Present: severe distress, well-nourished, obese HEART Score - HEART Score Troponin: Troponin T < 0.010 ng/mL (0.00-0.029) 12/17/20 21:33 Results - Labs CBC & Chem 7: 12/17/20 18:44 12/17/20 19:21 Labs: Laboratory Last Values WBC 6.8 K/mm3 (4.5-11.0) 12/17/20 18:44 RBC 6.76 M/mm3 (3.65-5.03) H 12/17/20 18:44 Hgb 20.4 gm/dl (11.8-15.2) H* 12/17/20 18:44 Hct 62.7 % (35.5-45.6) H* 12/17/20 18:44 MCV 93 fl (84-94) 12/17/20 18:44 MCH 30 pg (28-32) 12/17/20 18:44 MCHC 33 % (32-34) 12/17/20 18:44 RDW 15.2 % (13.2-15.2) 12/17/20 18:44 Plt Count 140 K/mm3 (140-440) 12/17/20 18:44 [place] % (Auto) Hood Fitter 12/17/20 18:44 Add Manual Diff Complete 12/17/20 18:44 Total Counted 100 12/17/20 18:44 Seg Neuts % (Manual) 58.0 % (40.0-70.0) 12/17/20 18:44 Lymphocytes % (Manual) 28.0 % (13.4-35.0) 12/17/20 18:44 Monocytes % (Manual) 12.0 % (0.0-7.3) H 12/17/20 18:44 Eosinophils % (Manual) 2.0 % (0.0-4.3) 12/17/20 18:44 Promyelocytes % 0 % 12/17/20 18:44 Nucleated RBC % Not Reportable 12/17/20 18:44 Seg Neutrophils # Man 3.9 K/mm3 (1.8-7.7) 12/17/20 18:44 Band Neutrophils # 0.0 K/mm3 12/17/20 18:44 Lymphocytes # (Manual) 1.9 K/mm3 (1.2-5.4) 12/17/20 18:44 Abs React Lymphs (Man) 0.0 K/mm3 12/17/20 18:44 Monocytes # (Manual) 0.8 K/mm3 (0.0-0.8) 12/17/20 18:44 Eosinophils # (Manual) 0.1 K/mm3 (0.0-0.4) 12/17/20 18:44 Basophils # (Manual) 0.0 K/mm3 (0.0-0.1) 12/17/20 18:44 Metamyelocytes # 0.0 K/mm3 12/17/20 18:44 Myelocytes # 0.0 K/mm3 12/17/20 18:44 Promyelocytes # 0.0 K/mm3 12/17/20 18:44 Blast Cells # 0.0 K/mm3 12/17/20 18:44 WBC Morphology Not Reportable 12/17/20 18:44 Hypersegmented Neuts Not Reportable 12/17/20 18:44 Hyposegmented Neuts Not Reportable 12/17/20 18:44 Hypogranular Neuts Not Reportable 12/17/20 18:44 Smudge Cells Not Reportable 12/17/20 18:44 Toxic Granulation Not Reportable 12/17/20 18:44 Toxic Vacuolation Not Reportable 12/17/20 18:44 Dohle Bodies Not Reportable 12/17/20 18:44 Pelger-Huet Anomaly Not Reportable 12/17/20 18:44 Jono Rods Not Reportable 12/17/20 18:44 Platelet Estimate Consistent w auto 12/17/20 18:44 Clumped Platelets Not Reportable 12/17/20 18:44 Plt Clumps, EDTA Not Reportable 12/17/20 18:44 Large Platelets Not Reportable 12/17/20 18:44 Giant Platelets Not Reportable 12/17/20 18:44 Platelet Satelliting Not Reportable 12/17/20 18:44 Plt Morphology Comment Not Reportable 12/17/20 18:44 RBC Morphology Normal 12/17/20 18:44 Dimorphic RBCs Not Reportable 12/17/20 18:44 Polychromasia Not Reportable 12/17/20 18:44 Hypochromasia Not Reportable 12/17/20 18:44 Poikilocytosis Not Reportable 12/17/20 18:44 Anisocytosis Not Reportable 12/17/20 18:44 Microcytosis Not Reportable 12/17/20 18:44 Macrocytosis Not Reportable 12/17/20 18:44 Spherocytes Not Reportable 12/17/20 18:44 Pappenheimer Bodies Not Reportable 12/17/20 18:44 Sickle Cells Not Reportable 12/17/20 18:44 Target Cells Not Reportable 12/17/20 18:44 Tear Drop Cells Not Reportable 12/17/20 18:44 Ovalocytes Not Reportable 12/17/20 18:44 Helmet Cells Not Reportable 12/17/20 18:44 Mejia-[place] Bodies Not Reportable 12/17/20 18:44 [place] Rings Not Reportable 12/17/20 18:44 [place] Cells Not Reportable 12/17/20 18:44 Bite Cells Not Reportable 12/17/20 18:44 Crenated Cell Not Reportable 12/17/20 18:44 Elliptocytes Not Reportable 12/17/20 18:44 Acanthocytes (Spur) Not Reportable 12/17/20 18:44 Rouleaux Not Reportable 12/17/20 18:44 Hemoglobin C Crystals Not Reportable 12/17/20 18:44 Schistocytes Not Reportable 12/17/20 18:44 Malaria parasites Not Reportable 12/17/20 18:44 Rashard Bodies Not Reportable 12/17/20 18:44 Hem Pathologist Commnt No 12/17/20 18:44 PT 13.7 Sec. (12.2-14.9) 12/17/20 18:44 INR 1.07 (0.87-1.13) 12/17/20 18:44 APTT 26.8 Sec. (24.2-36.6) 12/17/20 18:44 D-Dimer 260.5 ng/mlDDU (0-234) H 12/17/20 19:21 ABG pH 7.229 pH Units (7.350-7.450) L 12/17/20 20:00 ABG pCO2 78.3 mm Hg 12/17/20 20:00 ABG pO2 62.9 mm Hg (80.0-90.0) L 12/17/20 20:00 ABG HCO3 32.0 mmol/L (20.0-26.0) H 12/17/20 20:00 ABG O2 Saturation 88.6 % (95.0-99.0) L 12/17/20 20:00 ABG O2 Content 23.8 (0.0-44) 12/17/20 20:00 ABG Base Excess 0.7 mmol/L (-2.0-3.0) 12/17/20 20:00 ABG Hemoglobin 20.1 gm/dl (14.0-18.0) H 12/17/20 20:00 ABG Carboxyhemoglobin 4.0 % (0.0-5.0) 12/17/20 20:00 ABG Methemoglobin 0.5 % (0.0-1.5) 12/17/20 20:00 Oxyhemoglobin 84.6 % (95.0-99.0) L 12/17/20 20:00 FiO2 36 % 12/17/20 20:00 Sodium 134 mmol/L (137-145) L 12/17/20 18:44 Potassium 4.4 mmol/L (3.6-5.0) 12/17/20 18:44 Chloride 97.0 mmol/L (98-107) L 12/17/20 18:44 Carbon Dioxide 26 mmol/L (22-30) 12/17/20 18:44 Anion Gap 15 mmol/L 12/17/20 18:44 BUN 10 mg/dL (9-20) 12/17/20 18:44 Creatinine 0.8 mg/dL (0.8-1.3) 12/17/20 18:44 Estimated GFR > 60 ml/min 12/17/20 18:44 BUN/Creatinine Ratio 13 % 12/17/20 18:44 Glucose 98 mg/dL (75-100) 12/17/20 19:21 POC Glucose 111 mg/dL (70-105) H 12/18/20 11:20 Lactic Acid 1.10 mmol/L (0.7-2.0) 12/17/20 18:44 Calcium 9.0 mg/dL (8.4-10.2) 12/17/20 18:44 Magnesium 1.90 mg/dL (1.7-2.3) 12/17/20 18:44 Ferritin 202.3 ng/mL (30.0-300.0) 12/17/20 19:21 Total Bilirubin 0.40 mg/dL (0.1-1.2) 12/17/20 18:44 AST 27 units/L (5-40) 12/17/20 18:44 ALT 21 units/L (7-56) 12/17/20 18:44 Alkaline Phosphatase 66 units/L (35-129) 12/17/20 18:44 Lactate Dehydrogenase 708 units/L (91-180) H 12/17/20 19:21 Total Creatine Kinase 781 units/L (55-170) H 12/17/20 19:21 Troponin T < 0.010 ng/mL (0.00-0.029) 12/17/20 21:33 C-Reactive Protein 0.40 mg/dL (0.00-1.30) 12/17/20 19:21 NT-Pro-B Natriuret Pep 1354 pg/mL (0-450) H 12/17/20 18:44 Total Protein 6.6 g/dL (6.3-8.2) 12/17/20 18:44 Albumin 3.6 g/dL (3.9-5) L 12/17/20 18:44 Albumin/Globulin Ratio 1.2 % 12/17/20 18:44 Procalcitonin 0.05 ng/mL (<0.15) 12/17/20 19:21 Microbiology: Microbiology 12/17/20 18:44 Peripheral/Venous Blood Culture - Preliminary Culture in Progress 12/17/20 18:54 Peripheral/Venous Blood Culture - Preliminary Culture in Progress Torres/IV: Voiding Method Urinal Active Medications - Current Medications Current Medications: Generic Name Dose Route Start Last Admin Trade Name Freq PRN Reason Stop Dose Admin Albuterol 2.5 mg 12/17/20 21:55 Albuterol 2.5 Mg/3 Ml Nebu IH Q4HRT PRN Shortness Of Breath Albuterol/Ipratropium 1 ampul 12/18/20 02:00 12/18/20 07:52 Ipratropium/Albuterol Sulfate 3 Ml Ampul.Neb IH 1 ampul Q6HRT DAO Administration Azithromycin 250 mg 12/18/20 10:00 12/18/20 09:55 Azithromycin 250 Mg Tab PO 250 mg QDAY DAO Administration Protocol Furosemide 20 mg 12/18/20 10:00 12/18/20 09:55 Furosemide 20 Mg Tab PO 20 mg QDAY DAO Administration Heparin Sodium (Porcine) 5,000 unit 12/17/20 22:00 12/18/20 09:19 Heparin 5,000 Unit/1 Ml Vial SUB-Q Not Given Q8HR DAO Hydralazine HCl 10 mg 12/17/20 21:52 Hydralazine 20 Mg/1 Ml Inj IV Q6H PRN htn Methylprednisolone Sodium Succinate 40 mg 12/18/20 00:00 12/18/20 05:56 Methylprednisolone Sod Succinate 40 Mg/1 Ml Inj IV 40 mg Q6HR DAO Administration Montelukast Sodium 10 mg 12/17/20 22:00 12/17/20 23:40 Montelukast 10 Mg Tab PO Not Given QHS DAO Pantoprazole Sodium 40 mg 12/18/20 07:30 Pantoprazole 40 Mg Tab PO QDAC DAO
--- NOTE | 2020-12-18 12:28 | Consultation ---
History of Present Illness Consult date: 12/18/20 Requesting physician: NICOLE CHEEK Reason for consult: obstructive sleep apnea, other (Hypercapnic respiratory failure) History of present illness: 20 y/o morbidly obese male, whom I last saw over a year ago in the hospital admitted with back pain and shortness of breath. Found to have hypercapnic respiratory failure. Started on bipap and given diuretic therapy as well. He is awake and alert. Still on bipap. Remainder is negative. Past History Past Medical History: other (Hypoxic and hypercapnic respiratory failure obesity pulmonary edema) Medications and Allergies Allergies Allergy/AdvReac Type Severity Reaction Status Date / Time No Known Allergies Allergy Unverified 10/09/19 09:58 Home Medications Medication Instructions Recorded Confirmed Last Taken Type Albuterol Mdi (or & Nicu Only) 1 puff IH QID PRN #8.5 gram 10/17/19 Unknown Rx [ProAir HFA Inhaler] Furosemide [Lasix] 20 mg PO QDAY #14 tablet 10/17/19 Unknown Rx Active Meds: Active Medications Albuterol (Albuterol 2.5 Mg/3 Ml Nebu) 2.5 mg IH Q4HRT PRN PRN Reason: Shortness Of Breath Albuterol/Ipratropium (Ipratropium/Albuterol Sulfate 3 Ml Ampul.Neb) 1 ampul IH Q6HRT [facility] Last Admin: 12/18/20 07:52 Dose: 1 ampul Documented by: Azithromycin (Azithromycin 250 Mg Tab) 250 mg PO QDAY [facility]; Protocol Last Admin: 12/18/20 09:55 Dose: 250 mg Documented by: Furosemide (Furosemide 20 Mg Tab) 20 mg PO QDAY [facility] Last Admin: 12/18/20 09:55 Dose: 20 mg Documented by: Furosemide (Furosemide 20 Mg/2 Ml Inj) 20 mg IV ONCE ONE Stop: 12/18/20 12:22 Heparin Sodium (Porcine) (Heparin 5,000 Unit/1 Ml Vial) 5,000 unit SUB-Q Q8HR [facility] Last Admin: 12/18/20 09:19 Dose: Not Given Documented by: Hydralazine HCl (Hydralazine 20 Mg/1 Ml Inj) 10 mg IV Q6H PRN PRN Reason: htn Methylprednisolone Sodium Succinate (Methylprednisolone Sod Succinate 40 Mg/1 Ml Inj) 40 mg IV Q6HR [facility] Last Admin: 12/18/20 05:56 Dose: 40 mg Documented by: Montelukast Sodium (Montelukast 10 Mg Tab) 10 mg PO QHS [facility] Last Admin: 12/17/20 23:40 Dose: Not Given Documented by: Pantoprazole Sodium (Pantoprazole 40 Mg Tab) 40 mg PO QDAC [facility] Review of Systems All systems: negative Physical Examination Vital signs: Vital Signs Temp Pulse Resp BP Pulse Ox 99 F 110 H 22 129/76 81 L 12/17/20 18:22 12/17/20 18:22 12/17/20 18:22 12/17/20 18:22 12/17/20 18:22 General appearance: no acute distress, alert, other (morbidly obese) ENT: other (on full face mask bipap) Neck: supple Effort: normal Ascultation: Bilateral: diminished breath sounds Results - Laboratory Findings CBC and BMP: 12/17/20 18:44 12/17/20 19:21 ABG ABG pH 7.229 pH Units (7.350-7.450) L 12/17/20 20:00 ABG pCO2 78.3 mm Hg 12/17/20 20:00 ABG pO2 62.9 mm Hg (80.0-90.0) L 12/17/20 20:00 ABG O2 Saturation 88.6 % (95.0-99.0) L 12/17/20 20:00 PT/INR, D-dimer PT 13.7 Sec. (12.2-14.9) 12/17/20 18:44 INR 1.07 (0.87-1.13) 12/17/20 18:44 D-Dimer 260.5 ng/mlDDU (0-234) H 12/17/20 19:21 Abnormal lab findings: Abnormal Labs 12/17/20 12/17/20 12/17/20 18:44 18:44 19:21 RBC 6.76 H Hgb 20.4 H* Hct 62.7 H* Monocytes % (Manual) 12.0 H D-Dimer 260.5 H ABG pH ABG pO2 ABG HCO3 ABG O2 Saturation ABG Hemoglobin Oxyhemoglobin Sodium 134 L Chloride 97.0 L Glucose 105 H POC Glucose Lactate Dehydrogenase Total Creatine Kinase NT-Pro-B Natriuret Pep 1354 H Albumin 3.6 L 12/17/20 12/17/20 12/18/20 19:21 20:00 11:20 RBC Hgb Hct Monocytes % (Manual) D-Dimer ABG pH 7.229 L ABG pO2 62.9 L ABG HCO3 32.0 H ABG O2 Saturation 88.6 L ABG Hemoglobin 20.1 H Oxyhemoglobin 84.6 L Sodium Chloride Glucose POC Glucose 111 H Lactate Dehydrogenase 708 H Total Creatine Kinase 781 H NT-Pro-B Natriuret Pep Albumin - Diagnostic Findings Chest x-ray: image reviewed (cardiomegaly but clear lung sarmiento.) Assessment and Plan 20 y/o morbidly obese male with known JUNE and OHS, noncompliant with outpatient CPAP therapy admitted with hypercapnic respiratory failure and back pain. 1. Some volume overload likely played a part in this as well. Will give an additional dose of IV lasix today. 2. Attempt to wean of bipap later this afternoon and can likely transition to medical floor 3. Follow up COVID testing. 4. PPV at night and PRN
[2020-12-18] MEDS: PANTOPRAZOLE 40 MG TAB PO SCH (12:41)
[2020-12-18] MEDS ORDERED: FUROSEMIDE 20 MG/2 ML INJ IV SCH (13:00)
[2020-12-18 16:45] LABS: Basophils % (Auto) 0.6 % (0.0-1.8); Eosinophils % (Auto) 0.1 % (0.0-4.3); Lymphocytes # (Auto) 1.1 K/mm3 (1.2-5.4); Lymphocytes % (Auto) 22.9 % (13.4-35.0); Mean Corpuscular HGB Conc 33 % (32-34); Mean Corpuscular Volume 93 fl (84-94); Monocytes # (Auto) 0.7 K/mm3 (0.0-0.8); Monocytes % (Auto) 13.9 % (0.0-7.3); Red Blood Count 6.96 M/mm3 (3.65-5.03)
[2020-12-18 16:47] LABS: Hematocrit 64.6 % (35.5-45.6); Platelet Count 139 K/mm3 (140-440)
[2020-12-18 17:19] LABS: BUN/Creatinine Ratio 11; Blood Urea Nitrogen 10 mg/dL (9-20); Calcium 9.4 mg/dL (8.4-10.2); Hemolysis Index 40
[2020-12-18] MEDS: MONTELUKAST 10 MG TAB PO SCH (21:28)
[2020-12-19] MEDS: methylPREDNISolone Sod Succinate 40 MG/1 ML INJ IV SCH ×2 (00:36→05:00)
[2020-12-19] MEDS: IPRATROPIUM/ALBUTEROL SULFATE 3 ML AMPUL.NEB IH SCH ×4 (01:29→20:49)
[2020-12-19] MEDS: HEPARIN 5,000 UNIT/1 ML VIAL SUB-Q SCH ×3 (05:00→21:59)
[2020-12-19 05:40] LABS: Basophils % (Auto) 0.3 % (0.0-1.8); Lymphocytes # (Auto) 0.8 K/mm3 (1.2-5.4); Lymphocytes % (Auto) 10.7 % (13.4-35.0); Mean Corpuscular HGB Conc 33 % (32-34); Mean Corpuscular Volume 90 fl (84-94); Monocytes # (Auto) 0.5 K/mm3 (0.0-0.8); Monocytes % (Auto) 7.1 % (0.0-7.3); Red Blood Count 6.85 M/mm3 (3.65-5.03); Red Cell Distribution Width 14.9 % (13.2-15.2)
[2020-12-19 05:54] LABS: Platelet Count 167 K/mm3 (140-440)
[2020-12-19 05:56] LABS: Hematocrit 61.9 % (35.5-45.6); Hemoglobin 20.4 gm/dl (11.8-15.2)
[2020-12-19 06:00] LABS: BUN/Creatinine Ratio 19; Blood Urea Nitrogen 15 mg/dL (9-20); Calcium 9.1 mg/dL (8.4-10.2); Hemolysis Index 118
--- NOTE | 2020-12-19 08:04 | Progress Note ---
Assessment and Plan Assessment and plan: (1) Acute respiratory failure with hypoxia Current Visit: Yes Status: Acute Plan to address problem: Admit the patient to the stepdown. Put the patient on BiPAP. DuoNeb by nebulizer every 4 hours as needed. Solu-Medrol 40 mg IV every 6 hours as needed. Zithromax to 50 mg p.o. daily singular 10 mg p.o. daily. Blood cultures sputum culture. Consult pulmonary for further evaluation and treatment. Recheck CBC BMP in the morning (2) Hypercarbia Current Visit: Yes Status: Acute Plan to address problem: Put the patient on BiPAP. DuoNeb by nebulizer every 4 hours as needed. Solu- Medrol 40 mg IV every 6 hours as needed. Zithromax to 50 mg p.o. daily singular 10 mg p.o. daily. Blood cultures sputum culture. Consult pulmonary for further evaluation and treatment. Recheck CBC BMP in the morning (3) Lower back pain Current Visit: Yes Status: Acute Plan to address problem: Tylenol 650 mg p.o. every 6 hours as needed. We will try to avoid narcotic. (4) Morbid obesity Current Visit: Yes Status: Acute Plan to address problem: Patient counseled regarding weight loss. We refer to the outpatient bariatric surgery if needed (5) Obstructive sleep apnea Current Visit: Yes Status: Acute Plan to address problem: Patient encouraged to compliant with the CPAP and take them neb treatment and other medication regularly (6) Suspected 2019-nCoV infection Current Visit: Yes Status: Acute Plan to address problem: We will put the patient on Zithromax to 50 mg p.o. daily. Due to the blood cultures sputum culture. Please follow the Covid test. (7) DVT prophylaxis Current Visit: Yes Status: Acute Plan to address problem: Patient is on heparin 5000 units subcu every 8 hours for DVT prophylaxis and Protonix 40 mg p.o. daily for GI prophylaxis. Patient is a full code 12/18/2020 -Patient was seen and evaluated this morning. He is on treatment for asthma/COPD exacerbation. He is on IV antibiotic, nebulizer treatment and De cadron. Patient is currently on BiPAP. He has polycythemia likely due to hypoxia, will repeat CBC. Patient was noncompliant with his CPAP treatment at home. Patient suspected for Covid and Covid test ordered. Will queen's counsel about weight loss once he is getting better. Obstructive sleep apnea on BiPAP for now. Pulmonary consulted. 12/19/2020 -Patient is on BiPAP -Continue Decadron and nebulizer treatment. -Polycythemia due to hypoxia -Patient is on Lasix for volume overload History Interval history: Patient was seen and evaluated this morning Patient is on BiPAP Does not have any complaints Hospitalist Physical - Physical exam Narrative exam: Patient is on BiPAP. The patient is morbidly obese. Vital signs as documented. Head exam is unremarkable. No scleral icterus . Neck is without jugular venous distension, thyromegaly, or carotid bruits. Lungs are clear to auscultation. Cardiac exam reveals regular rate and Rhythm. Abdominal exam reveals normal bowel sounds, nontender, no organomegaly. Extremities are nonedematous and both femoral and pedal pulses are normal. 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 No focal weakness. - Constitutional Vitals: Temp Pulse Resp BP Pulse Ox 98.1 F 82 18 115/72 91 12/18/20 23:51 12/19/20 04:31 12/19/20 04:31 12/19/20 04:31 12/19/20 04:31 General appearance: Present: severe distress, well-nourished, obese HEART Score - HEART Score Troponin: Troponin T < 0.010 ng/mL (0.00-0.029) 12/17/20 21:33 Results - Labs CBC & Chem 7: 12/19/20 05:19 12/19/20 05:19 Labs: Laboratory Last Values WBC 7.2 K/mm3 (4.5-11.0) 12/19/20 05:19 RBC 6.85 M/mm3 (3.65-5.03) H 12/19/20 05:19 Hgb 20.4 gm/dl (11.8-15.2) H* 12/19/20 05:19 Hct 61.9 % (35.5-45.6) H* 12/19/20 05:19 MCV 90 fl (84-94) 12/19/20 05:19 MCH 30 pg (28-32) 12/19/20 05:19 MCHC 33 % (32-34) 12/19/20 05:19 RDW 14.9 % (13.2-15.2) 12/19/20 05:19 Plt Count 167 K/mm3 (140-440) 12/19/20 05:19 Lymph % (Auto) 10.7 % (13.4-35.0) L 12/19/20 05:19 [place] % (Auto) 7.1 % (0.0-7.3) 12/19/20 05:19 Eos % (Auto) 0.0 % (0.0-4.3) 12/19/20 05:19 Baso % (Auto) 0.3 % (0.0-1.8) 12/19/20 05:19 Lymph # (Auto) 0.8 K/mm3 (1.2-5.4) L 12/19/20 05:19 [place] # (Auto) 0.5 K/mm3 (0.0-0.8) 12/19/20 05:19 Eos # (Auto) 0.0 K/mm3 (0.0-0.4) 12/19/20 05:19 Baso # (Auto) 0.0 K/mm3 (0.0-0.1) 12/19/20 05:19 Add Manual Diff Complete 12/17/20 18:44 Total Counted 100 12/17/20 18:44 Seg Neutrophils % 81.9 % (40.0-70.0) H 12/19/20 05:19 Seg Neuts % (Manual) 58.0 % (40.0-70.0) 12/17/20 18:44 Lymphocytes % (Manual) 28.0 % (13.4-35.0) 12/17/20 18:44 Monocytes % (Manual) 12.0 % (0.0-7.3) H 12/17/20 18:44 Eosinophils % (Manual) 2.0 % (0.0-4.3) 12/17/20 18:44 Promyelocytes % 0 % 12/17/20 18:44 Nucleated RBC % Not Reportable 12/17/20 18:44 Seg Neutrophils # 5.9 K/mm3 (1.8-7.7) 12/19/20 05:19 Seg Neutrophils # Man 3.9 K/mm3 (1.8-7.7) 12/17/20 18:44 Band Neutrophils # 0.0 K/mm3 12/17/20 18:44 Lymphocytes # (Manual) 1.9 K/mm3 (1.2-5.4) 12/17/20 18:44 Abs React Lymphs (Man) 0.0 K/mm3 12/17/20 18:44 Monocytes # (Manual) 0.8 K/mm3 (0.0-0.8) 12/17/20 18:44 Eosinophils # (Manual) 0.1 K/mm3 (0.0-0.4) 12/17/20 18:44 Basophils # (Manual) 0.0 K/mm3 (0.0-0.1) 12/17/20 18:44 Metamyelocytes # 0.0 K/mm3 12/17/20 18:44 Myelocytes # 0.0 K/mm3 12/17/20 18:44 Promyelocytes # 0.0 K/mm3 12/17/20 18:44 Blast Cells # 0.0 K/mm3 12/17/20 18:44 WBC Morphology Not Reportable 12/17/20 18:44 Hypersegmented Neuts Not Reportable 12/17/20 18:44 Hyposegmented Neuts Not Reportable 12/17/20 18:44 Hypogranular Neuts Not Reportable 12/17/20 18:44 Smudge Cells Not Reportable 12/17/20 18:44 Toxic Granulation Not Reportable 12/17/20 18:44 Toxic Vacuolation Not Reportable 12/17/20 18:44 Dohle Bodies Not Reportable 12/17/20 18:44 Pelger-Huet Anomaly Not Reportable 12/17/20 18:44 Jono Rods Not Reportable 12/17/20 18:44 Platelet Estimate Consistent w auto 12/17/20 18:44 Clumped Platelets Not Reportable 12/17/20 18:44 Plt Clumps, EDTA Not Reportable 12/17/20 18:44 Large Platelets Not Reportable 12/17/20 18:44 Giant Platelets Not Reportable 12/17/20 18:44 Platelet Satelliting Not Reportable 12/17/20 18:44 Plt Morphology Comment Not Reportable 12/17/20 18:44 RBC Morphology Normal 12/17/20 18:44 Dimorphic RBCs Not Reportable 12/17/20 18:44 Polychromasia Not Reportable 12/17/20 18:44 Hypochromasia Not Reportable 12/17/20 18:44 Poikilocytosis Not Reportable 12/17/20 18:44 Anisocytosis Not Reportable 12/17/20 18:44 Microcytosis Not Reportable 12/17/20 18:44 Macrocytosis Not Reportable 12/17/20 18:44 Spherocytes Not Reportable 12/17/20 18:44 Pappenheimer Bodies Not Reportable 12/17/20 18:44 Sickle Cells Not Reportable 12/17/20 18:44 Target Cells Not Reportable 12/17/20 18:44 Tear Drop Cells Not Reportable 12/17/20 18:44 Ovalocytes Not Reportable 12/17/20 18:44 Helmet Cells Not Reportable 12/17/20 18:44 Mejia-Reedley Bodies Not Reportable 12/17/20 18:44 [place] Rings Not Reportable 12/17/20 18:44 Frederic Cells Not Reportable 12/17/20 18:44 Bite Cells Not Reportable 12/17/20 18:44 Crenated Cell Not Reportable 12/17/20 18:44 Elliptocytes Not Reportable 12/17/20 18:44 Acanthocytes (Spur) Not Reportable 12/17/20 18:44 Rouleaux Not Reportable 12/17/20 18:44 Hemoglobin C Crystals Not Reportable 12/17/20 18:44 Schistocytes Not Reportable 12/17/20 18:44 Malaria parasites Not Reportable 12/17/20 18:44 Rashard Bodies Not Reportable 12/17/20 18:44 Hem Pathologist Commnt No 12/17/20 18:44 PT 13.7 Sec. (12.2-14.9) 12/17/20 18:44 INR 1.07 (0.87-1.13) 12/17/20 18:44 APTT 26.8 Sec. (24.2-36.6) 12/17/20 18:44 D-Dimer 260.5 ng/mlDDU (0-234) H 12/17/20 19:21 ABG pH 7.229 pH Units (7.350-7.450) L 12/17/20 20:00 ABG pCO2 78.3 mm Hg 12/17/20 20:00 ABG pO2 62.9 mm Hg (80.0-90.0) L 12/17/20 20:00 ABG HCO3 32.0 mmol/L (20.0-26.0) H 12/17/20 20:00 ABG O2 Saturation 88.6 % (95.0-99.0) L 12/17/20 20:00 ABG O2 Content 23.8 (0.0-44) 12/17/20 20:00 ABG Base Excess 0.7 mmol/L (-2.0-3.0) 12/17/20 20:00 ABG Hemoglobin 20.1 gm/dl (14.0-18.0) H 12/17/20 20:00 ABG Carboxyhemoglobin 4.0 % (0.0-5.0) 12/17/20 20:00 ABG Methemoglobin 0.5 % (0.0-1.5) 12/17/20 20:00 Oxyhemoglobin 84.6 % (95.0-99.0) L 12/17/20 20:00 FiO2 36 % 12/17/20 20:00 Sodium 137 mmol/L (137-145) 12/19/20 05:19 Potassium 5.0 mmol/L (3.6-5.0) 12/19/20 05:19 Chloride 95.8 mmol/L (98-107) L 12/19/20 05:19 Carbon Dioxide 34 mmol/L (22-30) H 12/19/20 05:19 Anion Gap 12 mmol/L 12/19/20 05:19 BUN 15 mg/dL (9-20) 12/19/20 05:19 Creatinine 0.8 mg/dL (0.8-1.3) 12/19/20 05:19 Estimated GFR > 60 ml/min 12/19/20 05:19 BUN/Creatinine Ratio 19 % 12/19/20 05:19 Glucose 154 mg/dL (75-100) H 12/19/20 05:19 POC Glucose 111 mg/dL (70-105) H 12/18/20 11:20 Lactic Acid 1.10 mmol/L (0.7-2.0) 12/17/20 18:44 Calcium 9.1 mg/dL (8.4-10.2) 12/19/20 05:19 Magnesium 1.90 mg/dL (1.7-2.3) 12/17/20 18:44 Ferritin 202.3 ng/mL (30.0-300.0) 12/17/20 19:21 Total Bilirubin 0.40 mg/dL (0.1-1.2) 12/17/20 18:44 AST 27 units/L (5-40) 12/17/20 18:44 ALT 21 units/L (7-56) 12/17/20 18:44 Alkaline Phosphatase 66 units/L (35-129) 12/17/20 18:44 Lactate Dehydrogenase 708 units/L (91-180) H 12/17/20 19:21 Total Creatine Kinase 781 units/L (55-170) H 12/17/20 19:21 Troponin T < 0.010 ng/mL (0.00-0.029) 12/17/20 21:33 C-Reactive Protein 0.40 mg/dL (0.00-1.30) 12/17/20 19:21 NT-Pro-B Natriuret Pep 1354 pg/mL (0-450) H 12/17/20 18:44 Total Protein 6.6 g/dL (6.3-8.2) 12/17/20 18:44 Albumin 3.6 g/dL (3.9-5) L 12/17/20 18:44 Albumin/Globulin Ratio 1.2 % 12/17/20 18:44 Procalcitonin 0.05 ng/mL (<0.15) 12/17/20 19:21 Coronavirus (PCR) Negative (Negative) 12/17/20 Unknown Microbiology: Microbiology 12/17/20 18:44 Peripheral/Venous Blood Culture - Preliminary NO GROWTH AFTER 24 HOURS 12/17/20 18:54 Peripheral/Venous Blood Culture - Preliminary NO GROWTH AFTER 24 HOURS Torres/IV: Voiding Method Urinal Active Medications - Current Medications Current Medications: Generic Name Dose Route Start Last Admin Trade Name Freq PRN Reason Stop Dose Admin Albuterol 2.5 mg 12/17/20 21:55 Albuterol 2.5 Mg/3 Ml Nebu IH Q4HRT PRN Shortness Of Breath Albuterol/Ipratropium 1 ampul 12/18/20 02:00 12/19/20 01:29 Ipratropium/Albuterol Sulfate 3 Ml Ampul.Neb IH 1 ampul Q6HRT ADO Administration Azithromycin 250 mg 12/18/20 10:00 12/18/20 09:55 Azithromycin 250 Mg Tab PO 250 mg QDAY DAO Administration Protocol Furosemide 20 mg 12/18/20 10:00 12/18/20 09:55 Furosemide 20 Mg Tab PO 20 mg QDAY DAO Administration Heparin Sodium (Porcine) 5,000 unit 12/17/20 22:00 12/19/20 05:00 Heparin 5,000 Unit/1 Ml Vial SUB-Q 5,000 unit Q8HR DAO Administration Hydralazine HCl 10 mg 12/17/20 21:52 Hydralazine 20 Mg/1 Ml Inj IV Q6H PRN htn Methylprednisolone Sodium Succinate 40 mg 12/18/20 00:00 12/19/20 05:00 Methylprednisolone Sod Succinate 40 Mg/1 Ml Inj IV 40 mg Q6HR DAO Administration Montelukast Sodium 10 mg 12/17/20 22:00 12/18/20 21:28 Montelukast 10 Mg Tab PO 10 mg QHS DAO Administration Pantoprazole Sodium 40 mg 12/18/20 07:30 12/18/20 12:41 Pantoprazole 40 Mg Tab PO 40 mg QDAC DAO Administration
[2020-12-19] MEDS: PANTOPRAZOLE 40 MG TAB PO SCH (08:40)
[2020-12-19] MEDS: AZITHROMYCIN 250 MG TAB PO SCH (10:18)
[2020-12-19] MEDS: FUROSEMIDE 20 MG TAB PO SCH (10:18)
--- NOTE | 2020-12-19 10:59 | Progress Note ---
Assessment and Plan 20 y/o morbidly obese male with known JUNE and OHS, noncompliant with outpatient CPAP therapy admitted with hypercapnic respiratory failure and back pain. 12/19/20: Bipap QHS. Continue supplemental O2 and wean for sats >88%. Keep net negative. will stop steroids. patient does not have COPD. 1. Some volume overload likely played a part in this as well. Will give an additional dose of IV lasix today. 2. Attempt to wean of bipap later this afternoon and can likely transition to medical floor 3. Follow up COVID testing. 4. PPV at night and PRN Subjective Date of service: 12/19/20 Interval history: No acute events. Wore bipap last night. COVID negative. Objective Vital Signs - 12hr 12/18/20 12/18/20 12/19/20 23:30 23:51 01:30 Temperature 98.1 F Pulse Rate 96 H 103 H Pulse Rate [ 94 H Bilateral Throughout] Respiratory 20 20 Rate Respiratory 20 Rate [Bilateral Throughout] Blood Pressure 114/78 O2 Sat by Pulse 97 93 Oximetry 12/19/20 04:31 Temperature Pulse Rate 82 Pulse Rate [ Bilateral Throughout] Respiratory 18 Rate Respiratory Rate [Bilateral Throughout] Blood Pressure 115/72 O2 Sat by Pulse 91 Oximetry Constitutional: no acute distress, alert, other (morbidly obese) ENT: other (on full face mask bipap) Neck: supple Effort: normal Ascultation: Bilateral: diminished breath sounds CBC and BMP: 12/19/20 05:19 12/19/20 05:19 ABG, PT/INR, D-dimer: ABG ABG pH 7.229 pH Units (7.350-7.450) L 12/17/20 20:00 ABG pCO2 78.3 mm Hg 12/17/20 20:00 ABG pO2 62.9 mm Hg (80.0-90.0) L 12/17/20 20:00 ABG O2 Saturation 88.6 % (95.0-99.0) L 12/17/20 20:00 PT/INR, D-dimer PT 13.7 Sec. (12.2-14.9) 12/17/20 18:44 INR 1.07 (0.87-1.13) 12/17/20 18:44 D-Dimer 260.5 ng/mlDDU (0-234) H 12/17/20 19:21 Abnormal lab findings: Abnormal Labs 12/17/20 12/17/20 12/17/20 18:44 18:44 19:21 RBC 6.76 H Hgb 20.4 H* Hct 62.7 H* Plt Count Lymph % (Auto) [place] % (Auto) Lymph # (Auto) Seg Neutrophils % Monocytes % (Manual) 12.0 H D-Dimer 260.5 H ABG pH ABG pO2 ABG HCO3 ABG O2 Saturation ABG Hemoglobin Oxyhemoglobin Sodium 134 L Chloride 97.0 L Carbon Dioxide Glucose 105 H POC Glucose Lactate Dehydrogenase Total Creatine Kinase NT-Pro-B Natriuret Pep 1354 H Albumin 3.6 L 12/17/20 12/17/20 12/18/20 19:21 20:00 11:20 RBC Hgb Hct Plt Count Lymph % (Auto) [place] % (Auto) Lymph # (Auto) Seg Neutrophils % Monocytes % (Manual) D-Dimer ABG pH 7.229 L ABG pO2 62.9 L ABG HCO3 32.0 H ABG O2 Saturation 88.6 L ABG Hemoglobin 20.1 H Oxyhemoglobin 84.6 L Sodium Chloride Carbon Dioxide Glucose POC Glucose 111 H Lactate Dehydrogenase 708 H Total Creatine Kinase 781 H NT-Pro-B Natriuret Pep Albumin 12/18/20 12/18/20 12/19/20 16:23 16:23 05:19 RBC 6.96 H 6.85 H Hgb 21.0 H* 20.4 H* Hct 64.6 H* 61.9 H* Plt Count 139 L Lymph % (Auto) 10.7 L [place] % (Auto) 13.9 H Lymph # (Auto) 1.1 L 0.8 L Seg Neutrophils % 81.9 H Monocytes % (Manual) D-Dimer ABG pH ABG pO2 ABG HCO3 ABG O2 Saturation ABG Hemoglobin Oxyhemoglobin Sodium 135 L Chloride 93.7 L Carbon Dioxide Glucose POC Glucose Lactate Dehydrogenase Total Creatine Kinase NT-Pro-B Natriuret Pep Albumin 12/19/20 05:19 RBC Hgb Hct Plt Count Lymph % (Auto) [place] % (Auto) Lymph # (Auto) Seg Neutrophils % Monocytes % (Manual) D-Dimer ABG pH ABG pO2 ABG HCO3 ABG O2 Saturation ABG Hemoglobin Oxyhemoglobin Sodium Chloride 95.8 L Carbon Dioxide 34 H Glucose 154 H POC Glucose Lactate Dehydrogenase Total Creatine Kinase NT-Pro-B Natriuret Pep Albumin
[2020-12-19] MEDS: MONTELUKAST 10 MG TAB PO SCH (21:59)
[2020-12-20] MEDS: HEPARIN 5,000 UNIT/1 ML VIAL SUB-Q SCH ×3 (06:00→21:33)
[2020-12-20 06:08] LABS: Hemoglobin 19.7 gm/dl (11.8-15.2)
[2020-12-20 06:14] LABS: Hematocrit 61.6 % (35.5-45.6)
[2020-12-20] MEDS: IPRATROPIUM/ALBUTEROL SULFATE 3 ML AMPUL.NEB IH SCH ×3 (09:24→21:09)
[2020-12-20] MEDS: PANTOPRAZOLE 40 MG TAB PO SCH (10:04)
[2020-12-20] MEDS: FUROSEMIDE 20 MG TAB PO SCH (10:04)
[2020-12-20] MEDS: AZITHROMYCIN 250 MG TAB PO SCH (10:04)
--- NOTE | 2020-12-20 11:50 | Progress Note ---
Assessment and Plan Assessment and plan: (1) Acute respiratory failure with hypoxia Current Visit: Yes Status: Acute Plan to address problem: Admit the patient to the stepdown. Put the patient on BiPAP. DuoNeb by nebulizer every 4 hours as needed. Solu-Medrol 40 mg IV every 6 hours as needed. Zithromax to 50 mg p.o. daily singular 10 mg p.o. daily. Blood cultures sputum culture. Consult pulmonary for further evaluation and treatment. Recheck CBC BMP in the morning (2) Hypercarbia Current Visit: Yes Status: Acute Plan to address problem: Put the patient on BiPAP. DuoNeb by nebulizer every 4 hours as needed. Solu- Medrol 40 mg IV every 6 hours as needed. Zithromax to 50 mg p.o. daily singular 10 mg p.o. daily. Blood cultures sputum culture. Consult pulmonary for further evaluation and treatment. Recheck CBC BMP in the morning (3) Lower back pain Current Visit: Yes Status: Acute Plan to address problem: Tylenol 650 mg p.o. every 6 hours as needed. We will try to avoid narcotic. (4) Morbid obesity Current Visit: Yes Status: Acute Plan to address problem: Patient counseled regarding weight loss. We refer to the outpatient bariatric surgery if needed (5) Obstructive sleep apnea Current Visit: Yes Status: Acute Plan to address problem: Patient encouraged to compliant with the CPAP and take them neb treatment and other medication regularly (6) Suspected 2019-nCoV infection Current Visit: Yes Status: Acute Plan to address problem: We will put the patient on Zithromax to 50 mg p.o. daily. Due to the blood cultures sputum culture. Please follow the Covid test. (7) DVT prophylaxis Current Visit: Yes Status: Acute Plan to address problem: Patient is on heparin 5000 units subcu every 8 hours for DVT prophylaxis and Protonix 40 mg p.o. daily for GI prophylaxis. Patient is a full code 12/18/2020 -Patient was seen and evaluated this morning. He is on treatment for asthma/COPD exacerbation. He is on IV antibiotic, nebulizer treatment and De cadron. Patient is currently on BiPAP. He has polycythemia likely due to hypoxia, will repeat CBC. Patient was noncompliant with his CPAP treatment at home. Patient suspected for Covid and Covid test ordered. Will developmental training counselor about weight loss once he is getting better. Obstructive sleep apnea on BiPAP for now. Pulmonary consulted. 12/19/2020 -Patient is on BiPAP -Continue Decadron and nebulizer treatment. -Polycythemia due to hypoxia -Patient is on Lasix for volume overload 12/20/2020; patient is on Ventimask. CPAP at night. Polycythemia due to hypoxia. Discharge in a.m. if patient is off oxygen. Need outpatient sleep study for CPAP. History Interval history: Patient was seen and evaluated this morning Patient is on BiPAP Does not have any complaints Hospitalist Physical - Physical exam Narrative exam: Patient is on BiPAP. The patient is morbidly obese. Vital signs as documented. Head exam is unremarkable. No scleral icterus . Neck is without jugular venous distension, thyromegaly, or carotid bruits. Lungs are clear to auscultation. Cardiac exam reveals regular rate and Rhythm. Abdominal exam reveals normal bowel sounds, nontender, no organomegaly. Extremities are nonedematous and both femoral and pedal pulses are normal. COMMUNITY SERVICE OFFICER: Alert and oriented 3. No focal weakness. - Constitutional Vitals: Temp Pulse Resp BP Pulse Ox 98.0 F 96 H 22 117/74 91 12/20/20 04:13 12/20/20 09:20 12/20/20 09:20 12/20/20 08:04 12/20/20 09:26 General appearance: Present: severe distress, well-nourished, obese HEART Score - HEART Score Troponin: Troponin T < 0.010 ng/mL (0.00-0.029) 12/17/20 21:33 Results - Labs CBC & Chem 7: 12/20/20 05:17 12/19/20 05:19 Labs: Laboratory Last Values WBC 7.2 K/mm3 (4.5-11.0) 12/19/20 05:19 RBC 6.85 M/mm3 (3.65-5.03) H 12/19/20 05:19 Hgb 19.7 gm/dl (11.8-15.2) H 12/20/20 05:17 Hct 61.6 % (35.5-45.6) H* 12/20/20 05:17 MCV 90 fl (84-94) 12/19/20 05:19 MCH 30 pg (28-32) 12/19/20 05:19 MCHC 33 % (32-34) 12/19/20 05:19 RDW 14.9 % (13.2-15.2) 12/19/20 05:19 Plt Count 167 K/mm3 (140-440) 12/19/20 05:19 Lymph % (Auto) 10.7 % (13.4-35.0) L 12/19/20 05:19 [place] % (Auto) 7.1 % (0.0-7.3) 12/19/20 05:19 Eos % (Auto) 0.0 % (0.0-4.3) 12/19/20 05:19 Baso % (Auto) 0.3 % (0.0-1.8) 12/19/20 05:19 Lymph # (Auto) 0.8 K/mm3 (1.2-5.4) L 12/19/20 05:19 [place] # (Auto) 0.5 K/mm3 (0.0-0.8) 12/19/20 05:19 Eos # (Auto) 0.0 K/mm3 (0.0-0.4) 12/19/20 05:19 Baso # (Auto) 0.0 K/mm3 (0.0-0.1) 12/19/20 05:19 Add Manual Diff Complete 12/17/20 18:44 Total Counted 100 12/17/20 18:44 Seg Neutrophils % 81.9 % (40.0-70.0) H 12/19/20 05:19 Seg Neuts % (Manual) 58.0 % (40.0-70.0) 12/17/20 18:44 Lymphocytes % (Manual) 28.0 % (13.4-35.0) 12/17/20 18:44 Monocytes % (Manual) 12.0 % (0.0-7.3) H 12/17/20 18:44 Eosinophils % (Manual) 2.0 % (0.0-4.3) 12/17/20 18:44 Promyelocytes % 0 % 12/17/20 18:44 Nucleated RBC % Not Reportable 12/17/20 18:44 Seg Neutrophils # 5.9 K/mm3 (1.8-7.7) 12/19/20 05:19 Seg Neutrophils # Man 3.9 K/mm3 (1.8-7.7) 12/17/20 18:44 Band Neutrophils # 0.0 K/mm3 12/17/20 18:44 Lymphocytes # (Manual) 1.9 K/mm3 (1.2-5.4) 12/17/20 18:44 Abs React Lymphs (Man) 0.0 K/mm3 12/17/20 18:44 Monocytes # (Manual) 0.8 K/mm3 (0.0-0.8) 12/17/20 18:44 Eosinophils # (Manual) 0.1 K/mm3 (0.0-0.4) 12/17/20 18:44 Basophils # (Manual) 0.0 K/mm3 (0.0-0.1) 12/17/20 18:44 Metamyelocytes # 0.0 K/mm3 12/17/20 18:44 Myelocytes # 0.0 K/mm3 12/17/20 18:44 Promyelocytes # 0.0 K/mm3 12/17/20 18:44 Blast Cells # 0.0 K/mm3 12/17/20 18:44 WBC Morphology Not Reportable 12/17/20 18:44 Hypersegmented Neuts Not Reportable 12/17/20 18:44 Hyposegmented Neuts Not Reportable 12/17/20 18:44 Hypogranular Neuts Not Reportable 12/17/20 18:44 Smudge Cells Not Reportable 12/17/20 18:44 Toxic Granulation Not Reportable 12/17/20 18:44 Toxic Vacuolation Not Reportable 12/17/20 18:44 Dohle Bodies Not Reportable 12/17/20 18:44 Pelger-Huet Anomaly Not Reportable 12/17/20 18:44 Jono Rods Not Reportable 12/17/20 18:44 Platelet Estimate Consistent w auto 12/17/20 18:44 Clumped Platelets Not Reportable 12/17/20 18:44 Plt Clumps, EDTA Not Reportable 12/17/20 18:44 Large Platelets Not Reportable 12/17/20 18:44 Giant Platelets Not Reportable 12/17/20 18:44 Platelet Satelliting Not Reportable 12/17/20 18:44 Plt Morphology Comment Not Reportable 12/17/20 18:44 RBC Morphology Normal 12/17/20 18:44 Dimorphic RBCs Not Reportable 12/17/20 18:44 Polychromasia Not Reportable 12/17/20 18:44 Hypochromasia Not Reportable 12/17/20 18:44 Poikilocytosis Not Reportable 12/17/20 18:44 Anisocytosis Not Reportable 12/17/20 18:44 Microcytosis Not Reportable 12/17/20 18:44 Macrocytosis Not Reportable 12/17/20 18:44 Spherocytes Not Reportable 12/17/20 18:44 Pappenheimer Bodies Not Reportable 12/17/20 18:44 Sickle Cells Not Reportable 12/17/20 18:44 Target Cells Not Reportable 12/17/20 18:44 Tear Drop Cells Not Reportable 12/17/20 18:44 Ovalocytes Not Reportable 12/17/20 18:44 Helmet Cells Not Reportable 12/17/20 18:44 [place] Bodies Not Reportable 12/17/20 18:44 [place] Rings Not Reportable 12/17/20 18:44 [place] Cells Not Reportable 12/17/20 18:44 Bite Cells Not Reportable 12/17/20 18:44 Crenated Cell Not Reportable 12/17/20 18:44 Elliptocytes Not Reportable 12/17/20 18:44 Acanthocytes (Spur) Not Reportable 12/17/20 18:44 Rouleaux Not Reportable 12/17/20 18:44 Hemoglobin C Crystals Not Reportable 12/17/20 18:44 Schistocytes Not Reportable 12/17/20 18:44 Malaria parasites Not Reportable 12/17/20 18:44 Rashard Bodies Not Reportable 12/17/20 18:44 Hem Pathologist Commnt No 12/17/20 18:44 PT 13.7 Sec. (12.2-14.9) 12/17/20 18:44 INR 1.07 (0.87-1.13) 12/17/20 18:44 APTT 26.8 Sec. (24.2-36.6) 12/17/20 18:44 D-Dimer 260.5 ng/mlDDU (0-234) H 12/17/20 19:21 ABG pH 7.229 pH Units (7.350-7.450) L 12/17/20 20:00 ABG pCO2 78.3 mm Hg 12/17/20 20:00 ABG pO2 62.9 mm Hg (80.0-90.0) L 12/17/20 20:00 ABG HCO3 32.0 mmol/L (20.0-26.0) H 12/17/20 20:00 ABG O2 Saturation 88.6 % (95.0-99.0) L 12/17/20 20:00 ABG O2 Content 23.8 (0.0-44) 12/17/20 20:00 ABG Base Excess 0.7 mmol/L (-2.0-3.0) 12/17/20 20:00 ABG Hemoglobin 20.1 gm/dl (14.0-18.0) H 12/17/20 20:00 ABG Carboxyhemoglobin 4.0 % (0.0-5.0) 12/17/20 20:00 ABG Methemoglobin 0.5 % (0.0-1.5) 12/17/20 20:00 Oxyhemoglobin 84.6 % (95.0-99.0) L 12/17/20 20:00 FiO2 36 % 12/17/20 20:00 Sodium 137 mmol/L (137-145) 12/19/20 05:19 Potassium 5.0 mmol/L (3.6-5.0) 12/19/20 05:19 Chloride 95.8 mmol/L (98-107) L 12/19/20 05:19 Carbon Dioxide 34 mmol/L (22-30) H 12/19/20 05:19 Anion Gap 12 mmol/L 12/19/20 05:19 BUN 15 mg/dL (9-20) 12/19/20 05:19 Creatinine 0.8 mg/dL (0.8-1.3) 12/19/20 05:19 Estimated GFR > 60 ml/min 12/19/20 05:19 BUN/Creatinine Ratio 19 % 12/19/20 05:19 Glucose 154 mg/dL (75-100) H 12/19/20 05:19 POC Glucose 111 mg/dL (70-105) H 12/18/20 11:20 Lactic Acid 1.10 mmol/L (0.7-2.0) 12/17/20 18:44 Calcium 9.1 mg/dL (8.4-10.2) 12/19/20 05:19 Magnesium 1.90 mg/dL (1.7-2.3) 12/17/20 18:44 Ferritin 202.3 ng/mL (30.0-300.0) 12/17/20 19:21 Total Bilirubin 0.40 mg/dL (0.1-1.2) 12/17/20 18:44 AST 27 units/L (5-40) 12/17/20 18:44 ALT 21 units/L (7-56) 12/17/20 18:44 Alkaline Phosphatase 66 units/L (35-129) 12/17/20 18:44 Lactate Dehydrogenase 708 units/L (91-180) H 12/17/20 19:21 Total Creatine Kinase 781 units/L (55-170) H 12/17/20 19:21 Troponin T < 0.010 ng/mL (0.00-0.029) 12/17/20 21:33 C-Reactive Protein 0.40 mg/dL (0.00-1.30) 12/17/20 19:21 NT-Pro-B Natriuret Pep 1354 pg/mL (0-450) H 12/17/20 18:44 Total Protein 6.6 g/dL (6.3-8.2) 12/17/20 18:44 Albumin 3.6 g/dL (3.9-5) L 12/17/20 18:44 Albumin/Globulin Ratio 1.2 % 12/17/20 18:44 Procalcitonin 0.05 ng/mL (<0.15) 12/17/20 19:21 Coronavirus (PCR) Negative (Negative) 12/17/20 Unknown Microbiology: Microbiology 12/17/20 18:44 Peripheral/Venous Blood Culture - Preliminary NO GROWTH AFTER 48 HOURS 12/17/20 18:54 Peripheral/Venous Blood Culture - Preliminary NO GROWTH AFTER 48 HOURS Torres/IV: Voiding Method Urinal Active Medications - Current Medications Current Medications: Generic Name Dose Route Start Last Admin Trade Name Freq PRN Reason Stop Dose Admin Albuterol 2.5 mg 12/17/20 21:55 Albuterol 2.5 Mg/3 Ml Nebu IH Q4HRT PRN Shortness Of Breath Albuterol/Ipratropium 1 ampul 12/20/20 08:00 12/20/20 09:24 Ipratropium/Albuterol Sulfate 3 Ml Ampul.Neb IH 1 ampul TIDRT DAO Administration Azithromycin 250 mg 12/18/20 10:00 12/20/20 10:04 Azithromycin 250 Mg Tab PO 250 mg QDAY DAO Administration Protocol Furosemide 20 mg 12/18/20 10:00 12/20/20 10:04 Furosemide 20 Mg Tab PO 20 mg QDAY DAO Administration Heparin Sodium (Porcine) 5,000 unit 12/17/20 22:00 12/20/20 06:00 Heparin 5,000 Unit/1 Ml Vial SUB-Q 5,000 unit Q8HR DAO Administration Hydralazine HCl 10 mg 12/17/20 21:52 Hydralazine 20 Mg/1 Ml Inj IV Q6H PRN htn Montelukast Sodium 10 mg 12/17/20 22:00 12/19/20 21:59 Montelukast 10 Mg Tab PO 10 mg QHS DAO Administration Pantoprazole Sodium 40 mg 12/18/20 07:30 12/20/20 10:04 Pantoprazole 40 Mg Tab PO 40 mg QDAC DAO Administration
--- NOTE | 2020-12-20 13:01 | Progress Note ---
Assessment and Plan 20 y/o morbidly obese male with known JUNE and OHS, noncompliant with outpatient CPAP therapy admitted with hypercapnic respiratory failure and back pain. 12/20/20: Bipap QHS. WEan FiO2 for sats >88%. Will need walk test prior to discharge. I/O not accurate but will give an additional dose of IV lasix today. 12/19/20: Bipap QHS. Continue supplemental O2 and wean for sats >88%. Keep net negative. will stop steroids. patient does not have COPD. 1. Some volume overload likely played a part in this as well. Will give an additional dose of IV lasix today. 2. Attempt to wean of bipap later this afternoon and can likely transition to medical floor 3. Follow up COVID testing. 4. PPV at night and PRN Subjective Date of service: 12/20/20 Interval history: Patient down to 3 liters NC. Stable Objective Vital Signs - 12hr 12/20/20 12/20/20 12/20/20 04:13 08:04 09:15 Temperature 98.0 F Pulse Rate 83 84 Pulse Rate [ Bilateral Throughout] Respiratory 18 18 Rate Respiratory Rate [Bilateral Throughout] Blood Pressure 120/57 117/74 O2 Sat by Pulse 96 93 86 Oximetry 12/20/20 12/20/20 09:20 09:26 Temperature Pulse Rate Pulse Rate [ 96 H Bilateral Throughout] Respiratory Rate Respiratory 22 Rate [Bilateral Throughout] Blood Pressure O2 Sat by Pulse 91 Oximetry Constitutional: no acute distress, alert, other (morbidly obese) ENT: other (on full face mask bipap) Neck: supple Effort: normal Ascultation: Bilateral: diminished breath sounds CBC and BMP: 12/20/20 05:17 12/19/20 05:19 ABG, PT/INR, D-dimer: ABG ABG pH 7.229 pH Units (7.350-7.450) L 12/17/20 20:00 ABG pCO2 78.3 mm Hg 12/17/20 20:00 ABG pO2 62.9 mm Hg (80.0-90.0) L 12/17/20 20:00 ABG O2 Saturation 88.6 % (95.0-99.0) L 12/17/20 20:00 PT/INR, D-dimer PT 13.7 Sec. (12.2-14.9) 12/17/20 18:44 INR 1.07 (0.87-1.13) 12/17/20 18:44 D-Dimer 260.5 ng/mlDDU (0-234) H 12/17/20 19:21 Abnormal lab findings: Abnormal Labs 12/17/20 12/17/20 12/17/20 18:44 18:44 19:21 RBC 6.76 H Hgb 20.4 H* Hct 62.7 H* Plt Count Lymph % (Auto) [place] % (Auto) Lymph # (Auto) Seg Neutrophils % Monocytes % (Manual) 12.0 H D-Dimer 260.5 H ABG pH ABG pO2 ABG HCO3 ABG O2 Saturation ABG Hemoglobin Oxyhemoglobin Sodium 134 L Chloride 97.0 L Carbon Dioxide Glucose 105 H POC Glucose Lactate Dehydrogenase Total Creatine Kinase NT-Pro-B Natriuret Pep 1354 H Albumin 3.6 L 12/17/20 12/17/20 12/18/20 19:21 20:00 11:20 RBC Hgb Hct Plt Count Lymph % (Auto) [place] % (Auto) Lymph # (Auto) Seg Neutrophils % Monocytes % (Manual) D-Dimer ABG pH 7.229 L ABG pO2 62.9 L ABG HCO3 32.0 H ABG O2 Saturation 88.6 L ABG Hemoglobin 20.1 H Oxyhemoglobin 84.6 L Sodium Chloride Carbon Dioxide Glucose POC Glucose 111 H Lactate Dehydrogenase 708 H Total Creatine Kinase 781 H NT-Pro-B Natriuret Pep Albumin 12/18/20 12/18/20 12/19/20 16:23 16:23 05:19 RBC 6.96 H 6.85 H Hgb 21.0 H* 20.4 H* Hct 64.6 H* 61.9 H* Plt Count 139 L Lymph % (Auto) 10.7 L [place] % (Auto) 13.9 H Lymph # (Auto) 1.1 L 0.8 L Seg Neutrophils % 81.9 H Monocytes % (Manual) D-Dimer ABG pH ABG pO2 ABG HCO3 ABG O2 Saturation ABG Hemoglobin Oxyhemoglobin Sodium 135 L Chloride 93.7 L Carbon Dioxide Glucose POC Glucose Lactate Dehydrogenase Total Creatine Kinase NT-Pro-B Natriuret Pep Albumin 12/19/20 12/20/20 05:19 05:17 RBC Hgb 19.7 H Hct 61.6 H* Plt Count Lymph % (Auto) [place] % (Auto) Lymph # (Auto) Seg Neutrophils % Monocytes % (Manual) D-Dimer ABG pH ABG pO2 ABG HCO3 ABG O2 Saturation ABG Hemoglobin Oxyhemoglobin Sodium Chloride 95.8 L Carbon Dioxide 34 H Glucose 154 H POC Glucose Lactate Dehydrogenase Total Creatine Kinase NT-Pro-B Natriuret Pep Albumin
[2020-12-20] MEDS ORDERED: FUROSEMIDE 20 MG/2 ML INJ IV ONE (15:00)
[2020-12-20] MEDS: MONTELUKAST 10 MG TAB PO SCH (21:33)
[2020-12-21] MEDS: HEPARIN 5,000 UNIT/1 ML VIAL SUB-Q SCH (05:23)
[2020-12-21 06:44] LABS: BUN/Creatinine Ratio 18; Blood Urea Nitrogen 14 mg/dL (9-20); Hemolysis Index 59
[2020-12-21] MEDS: IPRATROPIUM/ALBUTEROL SULFATE 3 ML AMPUL.NEB IH SCH (07:56)
[2020-12-21] MEDS: PANTOPRAZOLE 40 MG TAB PO SCH (08:32)
--- NOTE | 2020-12-21 09:40 | Progress Note ---
Assessment and Plan 20 y/o morbidly obese male with known JUNE and OHS, noncompliant with outpatient CPAP therapy admitted with hypercapnic respiratory failure and back pain. 12/21/20: Bipap QHS. Wean FiO2 for sats >88%. Will need walk test prior to discharge. Tolerated additional lasix on yesterday. Will give again today. If able to afford oxygen, consider walk test to assess need. Not sure what funding patient has. 12/20/20: Bipap QHS. WEan FiO2 for sats >88%. Will need walk test prior to discharge. I/O not accurate but will give an additional dose of IV lasix today. 12/19/20: Bipap QHS. Continue supplemental O2 and wean for sats >88%. Keep net negative. will stop steroids. patient does not have COPD. 1. Some volume overload likely played a part in this as well. Will give an additional dose of IV lasix today. 2. Attempt to wean of bipap later this afternoon and can likely transition to medical floor 3. Follow up COVID testing. 4. PPV at night and PRN Subjective Date of service: 12/21/20 Interval history: Down to 4 liters nasal cannula with good sats. Wearing bipap at night. Objective Vital Signs - 12hr 12/20/20 12/20/20 12/20/20 22:00 23:00 23:39 Temperature 97.6 F Pulse Rate 62 85 83 Pulse Rate [ Bilateral Throughout] Respiratory 18 17 Rate Respiratory Rate [Bilateral Throughout] Blood Pressure 101/50 O2 Sat by Pulse 94 93 Oximetry 12/21/20 12/21/20 12/21/20 03:57 07:57 08:10 Temperature 97.4 F L 97.5 F L Pulse Rate 46 L 83 Pulse Rate [ 83 Bilateral Throughout] Respiratory 16 20 Rate Respiratory 16 Rate [Bilateral Throughout] Blood Pressure 135/93 118/80 O2 Sat by Pulse 87 90 Oximetry 12/21/20 08:56 Temperature Pulse Rate Pulse Rate [ Bilateral Throughout] Respiratory Rate Respiratory Rate [Bilateral Throughout] Blood Pressure O2 Sat by Pulse 95 Oximetry Constitutional: no acute distress, alert, other (morbidly obese) ENT: other (on full face mask bipap) Neck: supple Effort: normal Ascultation: Bilateral: diminished breath sounds CBC and BMP: 12/20/20 05:17 12/21/20 06:07 ABG, PT/INR, D-dimer: ABG ABG pH 7.229 pH Units (7.350-7.450) L 12/17/20 20:00 ABG pCO2 78.3 mm Hg 12/17/20 20:00 ABG pO2 62.9 mm Hg (80.0-90.0) L 12/17/20 20:00 ABG O2 Saturation 88.6 % (95.0-99.0) L 12/17/20 20:00 PT/INR, D-dimer PT 13.7 Sec. (12.2-14.9) 12/17/20 18:44 INR 1.07 (0.87-1.13) 12/17/20 18:44 D-Dimer 260.5 ng/mlDDU (0-234) H 12/17/20 19:21 Abnormal lab findings: Abnormal Labs 12/17/20 12/17/20 12/17/20 18:44 18:44 19:21 RBC 6.76 H Hgb 20.4 H* Hct 62.7 H* Plt Count Lymph % (Auto) [place] % (Auto) Lymph # (Auto) Seg Neutrophils % Monocytes % (Manual) 12.0 H D-Dimer 260.5 H ABG pH ABG pO2 ABG HCO3 ABG O2 Saturation ABG Hemoglobin Oxyhemoglobin Sodium 134 L Chloride 97.0 L Carbon Dioxide Glucose 105 H POC Glucose Lactate Dehydrogenase Total Creatine Kinase NT-Pro-B Natriuret Pep 1354 H Albumin 3.6 L 12/17/20 12/17/20 12/18/20 19:21 20:00 11:20 RBC Hgb Hct Plt Count Lymph % (Auto) [place] % (Auto) Lymph # (Auto) Seg Neutrophils % Monocytes % (Manual) D-Dimer ABG pH 7.229 L ABG pO2 62.9 L ABG HCO3 32.0 H ABG O2 Saturation 88.6 L ABG Hemoglobin 20.1 H Oxyhemoglobin 84.6 L Sodium Chloride Carbon Dioxide Glucose POC Glucose 111 H Lactate Dehydrogenase 708 H Total Creatine Kinase 781 H NT-Pro-B Natriuret Pep Albumin 12/18/20 12/18/20 12/19/20 16:23 16:23 05:19 RBC 6.96 H 6.85 H Hgb 21.0 H* 20.4 H* Hct 64.6 H* 61.9 H* Plt Count 139 L Lymph % (Auto) 10.7 L [place] % (Auto) 13.9 H Lymph # (Auto) 1.1 L 0.8 L Seg Neutrophils % 81.9 H Monocytes % (Manual) D-Dimer ABG pH ABG pO2 ABG HCO3 ABG O2 Saturation ABG Hemoglobin Oxyhemoglobin Sodium 135 L Chloride 93.7 L Carbon Dioxide Glucose POC Glucose Lactate Dehydrogenase Total Creatine Kinase NT-Pro-B Natriuret Pep Albumin 12/19/20 12/20/20 12/21/20 05:19 05:17 06:07 RBC Hgb 19.7 H Hct 61.6 H* Plt Count Lymph % (Auto) [place] % (Auto) Lymph # (Auto) Seg Neutrophils % Monocytes % (Manual) D-Dimer ABG pH ABG pO2 ABG HCO3 ABG O2 Saturation ABG Hemoglobin Oxyhemoglobin Sodium Chloride 95.8 L 94.2 L Carbon Dioxide 34 H 37 H Glucose 154 H 119 H POC Glucose Lactate Dehydrogenase Total Creatine Kinase NT-Pro-B Natriuret Pep Albumin
[2020-12-21] MEDS: AZITHROMYCIN 250 MG TAB PO SCH (10:19)
[2020-12-21] MEDS: FUROSEMIDE 20 MG TAB PO SCH (10:19)
--- NOTE | 2020-12-21 11:32 | Discharge Summary ---
Providers - Providers Date of Admission: 12/17/20 21:18 Attending physician: HEIDI CHAMORRO MD 12/17/20 22:05 Consult to Physician [CONS] Routine Comment: Consulting Provider: SIMON HANKINS Physician Instructions: Reason For Exam: COPD exacerbation Primary care physician: DIGITAL PROGRAM MANAGER Hospitalization Reason for admission: Acute respiratory failure Condition: Serious Hospital course: 21-year-old gentleman, with past medical history of hypoxic and hypercapnic respiratory failure requiring intubation, flash pulmonary edema, obstructive sleep apnea, noncompliant with CPAP, polycythemia and obesity was brought to the emergency room because of shortness of breath and nontraumatic paralumbar back pain. This has been present for a few weeks. The pain does not radiate anywhere. It increases with palpation. It decreases with rest. There is no bladder or bowel retention or incontinence, no saddle anesthesia, no focal extremity weakness/numbness. Patient also complaining of chronic headaches, sleepiness, fatigue, shortness of breath, and lower extremity swelling. In the ER patient is found to have acute hypoxic respiratory failure. ABG showed pH is 7.229 PCO2 78.3 PO2 62.9 bicarb 32.0 also patient has mild CHF (1) Acute respiratory failure with hypoxia Current Visit: Yes Status: Acute Plan to address problem: Admit the patient to the stepdown. Put the patient on BiPAP. DuoNeb by nebulizer every 4 hours as needed. Solu-Medrol 40 mg IV every 6 hours as needed. Zithromax to 50 mg p.o. daily singular 10 mg p.o. daily. Blood cultures sputum culture. Consult pulmonary for further evaluation and treatment. Recheck CBC BMP in the morning (2) Hypercarbia Current Visit: Yes Status: Acute Plan to address problem: Put the patient on BiPAP. DuoNeb by nebulizer every 4 hours as needed. Solu- Medrol 40 mg IV every 6 hours as needed. Zithromax to 50 mg p.o. daily singular 10 mg p.o. daily. Blood cultures sputum culture. Consult pulmonary for further evaluation and treatment. Recheck CBC BMP in the morning (3) Lower back pain Current Visit: Yes Status: Acute Plan to address problem: Tylenol 650 mg p.o. every 6 hours as needed. We will try to avoid narcotic. (4) Morbid obesity BMI 51.7 Current Visit: Yes Status: Acute Plan to address problem: Patient counseled regarding weight loss. We refer to the outpatient bariatric surgery if needed (5) Obstructive sleep apnea Current Visit: Yes Status: Acute Plan to address problem: Patient encouraged to compliant with the CPAP and take them neb treatment and other medication regularly (6) Suspected 2019-nCoV infection Current Visit: Yes Status: Acute Plan to address problem: We will put the patient on Zithromax to 50 mg p.o. daily. Due to the blood cultures sputum culture. Please follow the Covid test. 12/18/2020 -Patient was seen and evaluated this morning. He is on treatment for asthma/COPD exacerbation. He is on IV antibiotic, nebulizer treatment and Decadron. Patient is currently on BiPAP. He has polycythemia likely due to hypoxia, will repeat CBC. Patient was noncompliant with his CPAP treatment at home. Patient suspected for Covid and Covid test ordered. Will eligibility counselor about weight loss once he is getting better. Obstructive sleep apnea on BiPAP for now. Pulmonary consulted. 12/19/2020 -Patient is on BiPAP -Continue Decadron and nebulizer treatment. -Polycythemia due to hypoxia -Patient is on Lasix for volume overload 12/20/2020; patient is on Ventimask. CPAP at night. Polycythemia due to hypoxia. Discharge in a.m. if patient is off oxygen. Need outpatient sleep study for CPAP. 12/21: Patient clinically stable no acute distress. Ambulate in the hallway in no distress I did have extensive discussion with the patient about weight loss c ompliance with CPAP and other medical modalities that has been discussed with him. He requested to see social work on this was conveyed to case management team. Disposition: DC-01 TO HOME OR SELFCARE Final Discharge Diagnosis (Prints w/discharge instructions): Acute hypercapnic respiratory failure Time spent for discharge: 35 MINS Core Measure Documentation - Palliative Care Palliative Care/ Comfort Measures: Not Applicable - Core Measures Any of the following diagnoses?: none Exam - Physical Exam Narrative exam: VITAL SIGNS: Reviewed. GENERAL: The patient appears normally developed, morbidly obese vital signs as documented. HEAD: No signs of head trauma. EYES: Pupils are equal. Extraocular motions intact. EARS: Hearing grossly intact. MOUTH: Oropharynx is normal. NECK: No adenopathy, no JVD. CHEST: Chest with clear breath sounds bilaterally. No wheezes, rales, or rhonchi. CARDIAC: Regular rate and rhythm. S1 and S2, without murmurs, gallops, or rubs. VASCULAR: No Edema. Peripheral pulses normal and equal in all extremities. ABDOMEN: Soft, non tender and non distended. No rebound or guarding, and no masses palpated. Bowel Sounds normal. MUSCULOSKELETAL: Good range of motion of all major joints. Extremities without clubbing, cyanosis or edema. NEUROLOGIC EXAM: Alert and oriented x 3 No focal sensory or strength deficits. Speech normal. Follows commands. PSYCHIATRIC: Mood normal. SKIN: detail exam as documented in skin assessment - Constitutional Vitals: Temp Pulse Resp BP Pulse Ox 97.5 F L 83 20 118/80 95 12/21/20 08:10 12/21/20 08:10 12/21/20 08:10 12/21/20 08:10 12/21/20 08:56 Plan Activity: advance as tolerated, fall precautions Diet: low fat Special Instructions: record blood sugar diary, smoking cessation Follow up with: PRIMARY CAREMD [Primary Care Provider] - 3-5 Days SIMON HANKINS MD [Staff Physician] - 7 Days Prescriptions: Montelukast [Singulair] 10 mg PO QHS #30 tablet Furosemide [Lasix TAB] 20 mg PO QDAY #14 tablet Albuterol Mdi (or & Nicu Only) [ProAir HFA Inhaler] 1 puff IH QID PRN #8.5 gram PRN Reason: Shortness Of Breath Ipratropium/Albuterol Sulfate [DUONEB *Not for PRN Use*] 1 ampul IH TIDRT #90 ampul.neb
[2020-12-21 11:52] VITALS: BP 122/71
== END 2020-12-21 16:37 | disposition home or self-care (01) | DRG 189 ==
LOC: ED 17:07 → IMCU 21:18 → CC1 12-18 01:02 → 4A 12-18 19:55
PROVIDERS: ADMIT Hospitalist; ATTEND Internal Medicine
PROC: 5A09357 Assistance with Respiratory Ventilation, Less than 24 Consecutive Hours, Continuous Positive Airway Pressure (ICD-10-PCS; principal; 2020-12-17)
PROC: 5A09357 Assistance with Respiratory Ventilation, Less than 24 Consecutive Hours, Continuous Positive Airway Pressure (ICD-10-PCS; 2020-12-18)
PROC: 5A09357 Assistance with Respiratory Ventilation, Less than 24 Consecutive Hours, Continuous Positive Airway Pressure (ICD-10-PCS; 2020-12-19)
PROC: 5A09357 Assistance with Respiratory Ventilation, Less than 24 Consecutive Hours, Continuous Positive Airway Pressure (ICD-10-PCS; 2020-12-20)
DX: J96.01 Acute respiratory failure with hypoxia (principal); J96.02 Acute respiratory failure with hypercapnia; M54.5 Low back pain; E87.2 Acidosis; I27.20 Pulmonary hypertension, unspecified; Z91.19 Patient's noncompliance with other medical treatment and regimen; Z68.43 Body mass index [BMI] 50.0-59.9, adult; J44.9 Chronic obstructive pulmonary disease, unspecified; I50.9 Heart failure, unspecified; F17.200 Nicotine dependence, unspecified, uncomplicated; D75.1 Secondary polycythemia; Z20.822 Contact with and (suspected) exposure to COVID-19; E66.2 Morbid (severe) obesity with alveolar hypoventilation; Z71.3 Dietary counseling and surveillance
CPT/HCPCS: 36415; 71046; 80048; 80053; 82140; 82550; 82728; 82803; 82947; 82962; 83615; 83735; 83880; 84145; 84484; 85007; 85014; 85018; 85025; 85379; 85610; 85730; 86140; 87040; 93005; 94640; 94660; G0378; J1100; J1644; J1940; J2920; U0003